=== PATIENT | male | born 1965 | race Caucasian/White ===

== ENCOUNTER 2016-10-27 08:43 | Emergency (ER) ==
[2016-10-27] MEDS ORDERED: SODIUM CHLORIDE 1,000 ML IV STA ×2 (08:46→10:16)
[2016-10-27] MEDS ORDERED: ZOFRAN 4 MG/2 ML IVP STA (08:46)
[2016-10-27 08:49] VITALS: BP 138/86; TEMP 98.2; BMI 21.4
[2016-10-27] MEDS ORDERED: ATIVAN IVP STA ×3 (08:56→09:19)
--- NOTE | 2016-10-27 09:10 | ED.PDOC ---
General ED Provider: Dr. BLAINE PAUL JR Chief Complaint: Weakness Stated Complaint: PT STATES HE HAS BEEN HAVING PROBLEMS FOR A MONTH BUT WORSE IN THE LAST WEEK. STATES HE FEELS WEAK, UNABLE TO KEEP ANYTHING DOWN. [id number] OVER LAST 24 HOURS. ALSO HAVING DIARRHEA AND FEELS LIKE HE IS GOING TO PASS OUT. PAIN TO ABDOMEN AND BACK. CANT KEEP MEDS DOWN 9[End]98.2 108 20 98% 138/86 02/28. States was on valium 10mg tid out for a week(told me it would be my last prescription) drinks 4-5 beers a day not more if I can stop unable to take morphine for back for 12 hours due to nausea Time Seen by Physician: 09:10 Mode of Arrival: Walk-In Information Source: Patient Exam Limitations: No limitations Primary Care Provider: VALDO ARCHULETA Nursing and Triage Documentation Reviewed and Agree: No Review of Systems - Review Of Systems Constitutional: Reports: Diaphoresis, Malaise, Weakness Eyes: Reports: No symptoms Ears, Nose, Mouth, Throat: Reports: No symptoms Respiratory: Reports: No symptoms Cardiac: Reports: Lightheadedness GI: Reports: Abdominal pain (LLQ), Nausea, Vomiting : Reports: No symptoms Musculoskeletal: Reports: No symptoms Skin: Reports: No symptoms Neurological: Reports: Weakness Endocrine: Reports: No symptoms Hematologic/Lymphatic: Reports: No symptoms All Other Systems: Other Past Medical History - Past Medical History Endocrine: Reports: Dyslipidemia Cardiovascular: Reports: Hypertension Respiratory: Reports: None Hematological: Reports: None Gastrointestinal: Reports: Pancreatitis Genitourinary: Reports: None Neuro/Psych: Reports: None Musculoskeletal: Reports: Back Pain Cancer: Reports: None Other Pertinent Past Medical History: BACK PAIN,RLS(RESTLESS LEG SYNDROME) - Surgical History General Surgical History: Reports: Orthopedic (KNEE sx), Back Surgery - Family History Family History: Reports: Unknown - Social History Smoking Status: Current every day smoker, Light tobacco smoker Hx Substance Use: No Alcohol Screening: Heavy Physical Exam - Physical Exam Appearance: Ill-appearing, Thin Ill-appearing: Moderate Pain Distress: Moderate Eyes: ABDI, EOMI, Conjunctiva clear ENT: Ears normal, Nose normal, Oropharynx normal Neck: Supple Respiratory: Airway patent, Breath sounds clear, Breath sounds equal, Respirations nonlabored Cardiovascular: RRR, Pulses normal, No rub, No murmur GI/: Soft, Bowel sounds normal, No Organomegaly, Tender Musculoskeletal: ROM intact, No edema, No calf tenderness Skin: Warm, Dry, Pale Neurological: Sensation intact, Motor intact, Reflexes intact, Alert, Oriented Psychiatric: Anxious Interpretation - Radiology Interpretation Radiology Interpretation By: Radiologist Radiology Results: Negative Exam Interpreted: CXR - EKG Interpretation Time of EKG #1: 08:45 Rate: Tachy Rhythm: Sinus Brinklow: Right ST Segment: Other (lae) Re-Evaluation - Re-Evaluation Time of Re-Evaluation: 10:56 (no urine yet) Status: Improved (1057 n urine disc home management on clear liquids) - Re-Evaluation Time of Re-Evaluation: 11:36 (patietn aware of need to remain hydrated wishes to try home states will avoid alcohol) Status: Improved Critical Care Note - Critical Care Note Total Time (mins): 0 Course - Course Hematology/Chemistry: 10/27/16 09:20 10/27/16 09:15 Orders, Labs, Meds: Lab Review 10/27/16 10/27/16 10/27/16 09:15 09:20 11:00 WBC 6.78 RBC 3.55 L Hgb 12.1 L Hct 34.1 L MCV 96.1 H MCH 34.1 H MCHC 35.5 H RDW Coeff of Mariaa 14.3 Plt Count 232 Immature Gran % (Auto) 0.3 Neut % (Auto) 68.4 Lymph % (Auto) 21.7 Cowley % (Auto) 8.1 Eos % (Auto) 0.3 Baso % (Auto) 1.2 Immature Gran # (Auto) 0.0 Neut # 4.6 Lymph # 1.5 Cowley # 0.6 Eos # 0.0 Baso # 0.1 Sodium 138 Potassium 4.1 Chloride 101 Carbon Dioxide 20 L Anion Gap 21.1 BUN 13 Creatinine 1.03 Estimated GFR (MDRD) 76.00 BUN/Creatinine Ratio 12.62 Glucose 99 Calcium 9.1 Total Bilirubin 0.92 AST 97 H ALT 58 Alkaline Phosphatase 73 Total Creatine Kinase 89 Troponin I 0.0100 B-Natriuretic Peptide 36 Total Protein 7.4 Albumin 4.4 Globulin 3.0 Albumin/Globulin Ratio 1.47 Amylase 67 Lipase 122 H Procalcitonin < 0.05 TSH 0.236 L Urine Color Yellow Urine Clarity Clear Urine pH 7.0 Ur Specific Monroe 1.015 Urine Protein 1+ Urine Glucose (UA) Negative Urine Ketones 1+ Urine Blood Negative Urine Nitrite Negative Urine Bilirubin Negative Urine Urobilinogen 0.2 Ur Leukocyte Esterase Negative Urine Microscopic WBC 0-2 Ur Squamous Epith Cells Not present Salicylate Level mg/dL < 5.0 Urine Opiates Screen Positive Ur Oxycodone Screen Negative Urine Methadone Screen Negative Ur Propoxyphene Screen Negative Acetaminophen < 3 L Ur Barbiturates Screen Negative U Tricyclic Antidepress Negative Ur Phencyclidine Scrn Negative Ur Amphetamine Screen Negative U Methamphetamines Scrn Negative U Benzodiazepines Scrn Positive Urine Cocaine Screen Negative U Cannabinoids Screen Positive Plasma/Serum Alcohol < 10.0 H. pylori IgG Antibody Negative Orders Category Date Time Status EKG-(ED ONLY) Stat CARDIO 10/27/16 08:47 Completed ED APPLY O2 .ONCE EMERGENCY 10/27/16 08:46 Active ED SLIP MAKER APPLIED ONCE EMERGENCY 10/27/16 08:47 Active ACETAMINOPHEN Stat LAB 10/27/16 09:15 Completed AMYLASE Stat LAB 10/27/16 09:15 Completed B-TYPE NATRIURETIC PEPTIDE Stat LAB 10/27/16 09:15 Completed BLOOD ALCOHOL Stat LAB 10/27/16 09:15 Completed BLOOD CULTURE Stat LAB 10/27/16 09:15 Received CBC W/ AUTO DIFF Stat LAB 10/27/16 09:20 Completed COMPREHENSIVE METABOLIC PANEL Stat LAB 10/27/16 09:15 Completed CREATINE KINASE Stat LAB 10/27/16 09:15 Completed DRUG SCREEN, URINE, RAPID Stat LAB 10/27/16 09:15 Completed H. PYLORI SCREEN Stat LAB 10/27/16 09:15 Completed LIPASE Stat LAB 10/27/16 09:15 Completed PROCALCITONIN Stat LAB 10/27/16 09:15 Completed SALICYLATE Stat LAB 10/27/16 09:15 Completed THYROID STIMULATING HORMONE Stat LAB 10/27/16 09:15 Completed TROPONIN I Stat LAB 10/27/16 09:15 Completed URINALYSIS C & S IF INDICATED Stat LAB 10/27/16 11:00 Completed 0.9 % Sodium Chloride [Saline Flush] MEDS 10/27/16 08:46 Active 1 syr IVF PRN PRN Diphth,Pertuss(Acell),Tet Vac [Boostrix] MEDS 10/27/16 09:42 Discontinued 0.5 ml IM .ONCE ONE Lorazepam Inj [Ativan] MEDS 10/27/16 09:19 Discontinued 2 mg IVP ONCE STA Ondansetron HCl/Pf [Zofran 4 mg/2 ml] MEDS 10/27/16 08:46 Discontinued 4 mg IVP ONCE STA Sodium Chloride 0.9% [Sodium Chloride] 1,000 ml MEDS 10/27/16 08:46 Discontinued IV BOLUS Sodium Chloride 0.9% [Sodium Chloride] 1,000 ml MEDS 10/27/16 10:16 Discontinued IV BOLUS CHEST, 1V AP ONLY Stat RADS 10/27/16 08:[address] ABDOMEN/PELVIS WO CONTRAST Stat RADS 10/27/16 08:47 Completed Medications Generic Name Dose Route Start Last Admin Trade Name Freq PRN Reason Stop Dose Admin Sodium Chloride 1 syr 10/27/16 08:46 10/27/16 09:04 Saline Flush IVF 1 syr PRN PRN Administration To flush IV Discontinued Medications Generic Name Dose Route Start Last Admin Trade Name Freq PRN Reason Stop Dose Admin Diphtheria/Pertussis/Tetanus Vacc 0.5 ml 10/27/16 09:42 10/27/16 09:52 Boostrix IM 10/27/16 09:43 0.5 ml .ONCE ONE Administration Sodium Chloride 1,000 mls @ 1,000 mls/hr 10/27/16 08:46 10/27/16 09:04 Sodium Chloride IV 10/27/16 09:45 1,000 mls/hr BOLUS STA Administration Sodium Chloride 1,000 mls @ 1,000 mls/hr 10/27/16 10:16 10/27/16 10:19 Sodium Chloride IV 10/27/16 11:15 1,000 mls/hr BOLUS STA Administration Lorazepam 2 mg 10/27/16 09:19 10/27/16 09:05 Ativan IVP 10/27/16 09:20 2 mg ONCE STA Administration Ondansetron HCl 4 mg 10/27/16 08:46 10/27/16 09:03 Zofran 4 Mg/2 Ml IVP 10/27/16 08:47 4 mg ONCE STA Administration Vital Signs: Temp Pulse Resp BP Pulse Ox 10/27/16 08:44 98.2 F 108 H 20 138/86 98 Departure - Departure Time of Disposition: 11:31 Disposition: HOME SELF-CARE Discharge Problem: Fatty liver, alcoholic Pancreatitis Qualifiers: Chronicity: chronic Pancreatitis type: alcohol induced Qualifier Code: (K86.0) Alcohol-induced chronic pancreatitis Medication adverse effect Qualifiers: Encounter type: initial encounter Qualifier Code: (T88.7XXA) Unspecified adverse effect of drug or medicament, initial encounter Instructions: Abuse of Alcohol (ED), Pancreatitis (ED), Clear Liquid Diet (ED) Condition: Good Pt referred to PMD for follow-up: Yes Additional Instructions: call PMD today for follow up return if unable to keep liquids down may use zofran or phenergan for nausea- zofran is more expensive note phenergan suppositories with bypass vomiting but are more costly return if fever over 101.0, if not voiding more than three times a day, if worsening Prescriptions: Ondansetron HCl [Zofran Tab] 4 mg PO QID PRN #12 tablet PRN Reason: Nausea / Vomiting Promethazine HCl [Phenergan Tab] 25 mg PO QID PRN #12 tablet PRN Reason: Nausea / Vomiting Promethazine HCl [Phenergan Supp] 1 - 2 supp RC QID PRN #12 supp PRN Reason: Nausea / Vomiting Allergies/Adverse Reactions: Allergies codeine Adverse Reaction (Verified 10/27/16 08:50) Vomiting Home Medications: Ambulatory Orders Methocarbamol [Robaxin] 750 mg PO TID PRN 04/11/13 Morphine Sulfate [Morphine Sulfate ER] 60 mg PO BID 04/11/13 Ropinirole HCl [Requip] 1 mg PO BEDTIME PRN 04/11/13 Lisinopril 20 mg PO DAILY 10/26/13 Omeprazole 1 cap PO QDAC 10/26/13 Atorvastatin Calcium [Lipitor] 20 mg PO DAILY 03/26/15 Metoprolol Tartrate [Lopressor] 25 mg PO BID 03/26/15 Pantoprazole Sodium [Protonix] 40 mg PO BID 30 Days 03/29/15 Ondansetron HCl [Zofran Tab] 4 mg PO QID PRN #12 tablet 10/27/16 Promethazine HCl [Phenergan Supp] 1 - 2 supp RC QID PRN #12 supp 10/27/16 Promethazine HCl [Phenergan Tab] 25 mg PO QID PRN #12 tablet 10/27/16
[2016-10-27 09:28] LABS: BASOPHILS # (AUTO) 0.1 K/uL (0-0.2); BASOPHILS % (AUTO) 1.2 % (0.0-3.0); EOSINOPHILS % (AUTO) 0.3 % (0.0-7.0); HEMATOCRIT 34.1 % (42.0-52.0); HEMOGLOBIN 12.1 g/dl (14.0-18.0); IMMATURE GRANULOCYTE % (AUTO) 0.3 % (0.0-5.0); LYMPHOCYTES # (AUTO) 1.5 K/uL (0.60-3.4); LYMPHOCYTES % (AUTO) 21.7 (10.0-50.0); MEAN CORPUSCULAR HEMOGLOBIN 34.1 pg (27.0-31.0); MEAN CORPUSCULAR HGB CONC 35.5 (31.8-35.4); MEAN CORPUSCULAR VOLUME 96.1 fl (80.0-94.0); MONOCYTES # (AUTO) 0.6 K/uL (0.4-2.0); MONOCYTES % (AUTO) 8.1 (0-10); NEUTROPHILS # (AUTO) 4.6 K/ul (2.0-6.9); NEUTROPHILS % (AUTO) 68.4; PLATELET COUNT 232 10^3/uL (140-440); RED BLOOD COUNT 3.55 10^6/ul (4.70-6.10); WHITE BLOOD COUNT 6.78 K/ul (4.2-10.2)
[2016-10-27 09:36] LABS: H. PYLORI ANTIBODY NEGATIVE (NEGATIVE); H.PYLORI INTERNAL QC INTERNAL QC VALID
--- NOTE | 2016-10-27 09:36 | DI ---
EXAM: Single frontal view of the chest HISTORY: Chest pain. COMPARISON: Chest x-ray 10/26/2013 FINDINGS: Cardiomediastinal silhouette is unremarkable. There is no pneumothorax or pleural effusio n. There is no consolidation, nodule or mass. The osseous structures are unremarkable. IMPRESSION: No acute cardiopulmonary process.
[2016-10-27] MEDS ORDERED: BOOSTRIX IM ONE (09:42)
--- NOTE | 2016-10-27 10:04 | CT ---
EXAM: CT ABDOMEN AND PELVIS HISTORY: Abdominal pain, vomiting TECHNIQUE: CT abdomen and pelvis without intravenous contrast. Images were reconstructed using 5 m m section thickness. Reformations were prepared. COMPARISON: 03/15/2016 FINDINGS: Diagnostic limitations exist without including contrast enhanced images. Moderate fatty infiltratio n of the liver with possible early cirrhotic architecture. No focal hepatic or splenic lesions. Ga llbladder is mildly distended, nonspecific. No obvious gallbladder wall thickening or pericholecyst ic stranding. No obvious gallstones within limits of CT. Pancreas and adrenal glands are within no rmal limits. Minimal nonspecific bilateral perinephric fat stranding. No nephrolithiasis, hydronep hrosis or evidence of ureteral obstruction. Mild to moderate atherosclerotic disease of the aorta. No gastric distension. What appears to represent the appendix has no evidence of inflammation. Nono bstructive bowel gas pattern. Mild distal colon diverticulosis. Urinary bladder and prostate are wit hin normal limits. There is no ascites. No abdominal wall hernia. Interbody fusion hardware lumbosacral junction. Lung bases are free of a cute infiltrate. No pneumoperitoneum. IMPRESSION: 1. Moderate fatty infiltration of the liver with probable early cirrhotic architecture. 2. Mildly distended gallbladder is nonspecific. Correlate clinically. Ultrasound is available if indicated. 3. Subtle bilateral nonspecific perinephric fat stranding likely chronic for the patient. Less lik natasha evidence of renal parenchymal or collecting system infection. 4. Mild distal colon diverticulosis. 5. Mild to moderate atherosclerotic disease.
[2016-10-27 10:06] LABS: ACETAMINOPHEN < 3 ug/ml (10-30); ALANINE AMINOTRANSFERASE 58 U/L (12-78); ALBUMIN 4.4 g/dL (3.4-5.0); ALBUMIN/GLOBULIN RATIO 1.47; ALKALINE PHOSPHATASE 73 U/L (50-136); AMYLASE 67 U/L (25-115); ANION GAP 21.1; ASPARTATE AMINO TRANSFERASE 97 U/L (15-37); BILIRUBIN,TOTAL 0.92 mg/dL (0.00-1.20); BLOOD UREA NITROGEN 13 mg/dL (7-18); BUN/CREATININE RATIO 12.62; CALCIUM 9.1 mg/dL (8.2-10.2); CARBON DIOXIDE 20 mmol/L (21-32); CHLORIDE 101 mmol/L (98-107); CREATINE KINASE 89 U/L; CREATININE 1.03 mg/dL (0.60-1.10); GLUCOSE 99 mg/dL (70-100); LIPASE 122 U/L (8-78); POTASSIUM 4.1 mmol/L (3.5-5.1); SALICYLATE < 5.0 mg/dL (2.8-20.0); SODIUM 138 mmol/L (136-145); TOTAL PROTEIN 7.4 g/dL (6.4-8.2)
[2016-10-27 11:07] LABS: BILIRUBIN,URINE Negative (NEGATIVE); KETONES,URINE 1+ (NEGATIVE); LEUKOCYTE ESTERASE ,URINE Negative (NEGATIVE); NITRITE,URINE Negative (NEGATIVE); PROTEIN,URINE 1+ (NEGATIVE); URINE, BLOOD Negative (NEGATIVE)
[2016-10-27 11:09] LABS: ADD URINE MICROSCOPIC YES
[2016-10-27 11:17] LABS: COCAIN SCREEN,URINE NEGATIVE (NEGATIVE)
== END 2016-10-27 12:01 | disposition home or self-care (01) ==
LOC: ED 08:43
DX: K86.0 Alcohol-induced chronic pancreatitis (principal); K70.0 Alcoholic fatty liver; T88.7XXA Unspecified adverse effect of drug or medicament, initial encounter; R42 Dizziness and giddiness; R53.1 Weakness; E78.5 Hyperlipidemia, unspecified; I10 Essential (primary) hypertension; F17.210 Nicotine dependence, cigarettes, uncomplicated; Z79.899 Other long term (current) drug therapy
CPT/HCPCS: 36415; 80053; 80306; 80307; 81001; 82150; 82550; 83690; 83880; 84145; 84443; 84484; 85025; 86677; 87040; 90471; 93005; 93010; 96361; 96374; 96375; 99283

== ENCOUNTER 2017-01-08 09:55 | Emergency (ER) ==
[2017-01-08 09:59] VITALS: BP 135/73; TEMP 99.6; BMI 20.5
--- NOTE | 2017-01-08 10:11 | ED.PDOC ---
General ED Provider: Dr. BLAINE PAUL JR Chief Complaint: Knee Pain/Injury Stated Complaint: step down into his garage,missed the step landed on concrete floor right knee.[End]0300, 99.6 104 22 96% 135/73 10 Time Seen by Physician: 10:10 Mode of Arrival: Wheelchair Information Source: Patient Exam Limitations: No limitations Primary Care Provider: VALDO ARCHULETA Nursing and Triage Documentation Reviewed and Agree: No Review of Systems - Review Of Systems Constitutional: Reports: No symptoms Eyes: Reports: No symptoms Ears, Nose, Mouth, Throat: Reports: No symptoms Respiratory: Reports: No symptoms Cardiac: Reports: No symptoms GI: Reports: No symptoms : Reports: No symptoms Musculoskeletal: Reports: Back pain (CHRINIC), Joint pain (RIGHT KNEE-NEW) Skin: Reports: Lesions (ABRASION BELOW KNEE) Neurological: Reports: No symptoms Endocrine: Reports: No symptoms Hematologic/Lymphatic: Reports: No symptoms All Other Systems: Other Past Medical History - Past Medical History Endocrine: Reports: Dyslipidemia Cardiovascular: Reports: Hypertension Respiratory: Reports: None Hematological: Reports: None Gastrointestinal: Reports: Pancreatitis Genitourinary: Reports: None Neuro/Psych: Reports: None Musculoskeletal: Reports: Back Pain Cancer: Reports: None Other Pertinent Past Medical History: BACK PAIN,RLS(RESTLESS LEG SYNDROME) - Surgical History General Surgical History: Reports: Orthopedic (KNEE), Back Surgery, Other (left lower wisdom tooth cut out 01/07/17) - Family History Family History: Reports: Unknown - Social History Smoking Status: Current every day smoker, Light tobacco smoker Hx Substance Use: No Alcohol Screening: Occasionally - Immunizations Tetanus Shot up to Date: Yes Physical Exam - Physical Exam Appearance: Well-appearing, Thin Pain Distress: Moderate Neck: Supple Respiratory: Airway patent Cardiovascular: RRR GI/: Soft Musculoskeletal: Normal strength, Limited ROM (RIGHT KNEE EFFUSION PAIN TENDER OVER TIBIA AND FEMUR NEAR KNEE ABRASION ANTERIOR BURNETT- SUPERFICIAL) Skin: Warm, Dry, Normal color (NOTE ABRARSION) Neurological: Sensation intact, Reflexes intact, Cranial nerves intact, Alert, Oriented Psychiatric: Affect appropriate, Mood appropriate Physician Notification - Case Discussed Physician Notified: DR BARRIGA AT [facility] COMPLETELY NONDISPLACED SH IVFX NOT A STABEL FRACTURE- Time of Notification: 11:17 (IF NONWEIGHTBEARING SPINT AND FOLLWO UP WEDNESDAY) Critical Care Note - Critical Care Note Total Time (mins): 0 Course - Course Orders, Labs, Meds: Orders Category Date Time Status CRUTCHES [ED CRUTCHES] .ONCE EMERGENCY 01/08/17 11:24 Active ED SPLINT APPLICATION .ONCE EMERGENCY 01/08/17 11:24 Active BILIRUBIN,DIRECT Stat LAB 01/08/17 11:26 Ordered CMP [COMPREHENSIVE METABOLIC PANEL] Stat LAB 01/08/17 11:26 Ordered PHOSPHORUS Stat LAB 01/08/17 11:26 Ordered Hydrocodone Bit/Acetaminophen [Hernando 10-325] MEDS 01/08/17 11:30 Discontinued 1 tab PO ONCE STA Hydrocodone Bit/Acetaminophen [Hernando 5-325] MEDS 01/08/17 10:18 Discontinued 1 tab PO ONCE STA KNEE, RIGHT 4 VIEWS Stat RADS 01/08/17 10:10 Completed Medications Discontinued Medications Generic Name Dose Route Start Last Admin Trade Name Freq PRN Reason Stop Dose Admin Acetaminophen/Hydrocodone Bitart 1 tab 01/08/17 10:18 01/08/17 10:53 Hernando 5-325 PO 01/08/17 10:19 1 tab ONCE STA Administration Acetaminophen/Hydrocodone Bitart 1 tab 01/08/17 11:30 01/08/17 11:40 Hernando 10-325 PO 01/08/17 11:31 1 tab ONCE STA Administration Vital Signs: Temp Pulse Resp BP Pulse Ox 01/08/17 09:55 99.6 F 104 H 22 135/73 96 Departure - Departure Time of Disposition: 11:17 Disposition: HOME SELF-CARE Discharge Problem: Knee fracture, right Instructions: Leg Fracture (ED) Condition: Good Pt referred to PMD for follow-up: Yes ([facility]) Additional Instructions: NO WEIGHT RIGHT LEG FOLLOW UP WEDNESDAY OUTPATIENT DR NITHYA YEUNG FOR PAIN NOT CONTROLLED BY HOME MEDS CONTACT PAIN MANAGEMENT ABOUT LEG FRACTURE AND NEW PAIN MEDICATION CONTACT PMD ABOUT ORTHOPEDIC REFERRAL- YOU WILL NEED ACTUAL REFERRAL FROM YOUR PHYSICIAN FOLLOW UP ORTHOPEDICS DR NORTH BARRIGA - [phone] [id number] [facility] Prescriptions: Hydrocodone/Acetaminophen [Hernando 10-325 Tablet] 1 each PO Q4-6H PRN #20 tablet PRN Reason: KNEE PAIN(FRACTURE) Allergies/Adverse Reactions: Allergies codeine Adverse Reaction (Verified 10/27/16 08:50) Vomiting Home Medications: Ambulatory Orders Methocarbamol [Robaxin] 750 mg PO TID PRN 04/11/13 Morphine Sulfate [Morphine Sulfate ER] 60 mg PO BID 04/11/13 Ropinirole HCl [Requip] 1 mg PO BEDTIME PRN 04/11/13 Lisinopril 20 mg PO DAILY 10/26/13 Cyclobenzaprine HCl [Flexeril] 10 mg PO DAILY 01/08/17 Hydrocodone/Acetaminophen [Hernando 10-325 Tablet] 1 each PO Q4-6H PRN #20 tablet 01/08/17 Meloxicam [Mobic] 1 tab PO DAILY 01/08/17
[2017-01-08] MEDS ORDERED: NORCO 5-325 PO STA (10:18)
--- NOTE | 2017-01-08 10:38 | DI ---
EXAM: Four views of the right knee HISTORY: Fall with trauma on floor with pain. COMPARISON: None FINDINGS: Medial and lateral compartments are unremarkable. There is a large knee effusion. There i s a fracture line through the medial aspect of the medial tibial plateau with questionable linear bernarda cency in the lateral tibial plateau. The patella is normal in position without fracture. The dista l femur is unremarkable. IMPRESSION: Large effusion with linear lucency in the medial aspect of the medial tibial plateau consistent wit h fracture. There is questionable linear lucency in the more medial aspect of the medial tibial wilmer teau. CT versus MRI is recommended to further evaluate.
[2017-01-08] MEDS ORDERED: NORCO 10-325 PO STA (11:30)
[2017-01-08 12:06] LABS: ALBUMIN/GLOBULIN RATIO 1.14; ANION GAP 20.4; BILIRUBIN,DIRECT 0.28 mg/dL (0.00-0.30); BILIRUBIN,TOTAL 0.49 mg/dL (0.00-1.20); BUN/CREATININE RATIO 13.92; CREATININE 0.79 mg/dL (0.60-1.10); PHOSPHORUS 3.1 mg/dL (2.5-4.9); POTASSIUM 4.4 mmol/L (3.5-5.1); TOTAL PROTEIN 7.5 g/dL (6.4-8.2)
== END 2017-01-08 12:56 | disposition home or self-care (01) ==
LOC: ED 09:55
DX: S82.001A Unspecified fracture of right patella, initial encounter for closed fracture (principal); W10.9XXA Fall (on) (from) unspecified stairs and steps, initial encounter; F17.210 Nicotine dependence, cigarettes, uncomplicated
CPT/HCPCS: 36415; 80053; 82248; 84100; 99283

== ENCOUNTER 2017-03-17 14:00 | Outpatient (RCR) ==
--- NOTE | 2017-03-15 09:55 | RS.OPPTEV2 ---
Date of Note: 03/12/17 Visit #: 1 Date of Evaluation: 03/12/17 Payer Source: MEDICARE Date of Onset/Injury/Change in Status: 01/19/17 (approximate date) Surgery Performed?: No Treatment Diagnosis: Closed fx of R tibial plateau History of Condition/Mechanism of Injury:: pt reports he was going down a step into his garage carrying a load of laundry and felt a sharp pain in his low back and fell with RLE under his body, causing fx. 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 pt also limited with amb as well with distance of amb, states used to amb 1-3 miles per day and now is unable to amb > than to the mailbox. Functional Limitations: Sleep, Sitting, Standing, Squatting, Ambulation, Community Access/Integration Current Subjective/complaints:: Patient states he has to get the knee better because since he has changed his gait has significantly increased low back pain. pt states he has been trying to straighten it out but unable. Treatment Side (optional): Right Medical History Medical History: Hypertension, Arthritis Medical History Comments:: pt suffered fall approx 8 weeks ago sustaining R tibial plateau fx. Surgical History: Knee Replacement, Lumbar Spine (fusion years ago) Smoking Status: Current every day smoker Hx Home Medications: meloxicam, ropinirole, tizanidine, morphine sulfate 60 mg, lisinopril 40 mg Patient's Goals: decrease pain and be able to walk Pain Assessment - Pain Description Pain Location: lumbar spine radiating into BLE (longstanding pain from back injury in 1997 is exacerbated since R tib plat fx due to altered gait) Pain Description: Burning, Sharp, Aching Current Pain Intensity: 7 Worst Pain Intensity: 10 Other Comments regarding Pain:: R knee pain 7/10 sharp pain increases with ROM extension worse than flexion. Functional Outcome Measure LE Functional Scale: 29 (63.8%) Tinetti: 16 - G Codes & Severity Modifier G Codes & Modifier: G8978 cl mobility current. G8978 cj mobility goal Source of G Code score: LE Functional scale Observation - Observation Posture: Forward Head, Rounded Shoulders, Decreased Lumbar Lordosis Handedness: Right Girth Measurement Lower: R LE above patella 39cm. patella 41 cm. below patella 34 cm Gait - Gait Pattern General Gait Pattern Observation: Antalgic Gait, Short Stance Time (R) Gait Comments: pt amb with walking stick with decreased heel strike, flexed posture, and decreased stance time on R due to pain General Muscle Strength: BUE ~4/5 difficult to MMT due to testing significantly increasing LBP - ROM Lumbar Flexion: Hand reach to patellae Sidebending to Left: Reach to Mid-thigh Sidebending to Right: Reach to Mid-thigh Lumbar Spine ROM Limitations: Soft Tissue Tightness, Muscle Weakness, Pain Comments: Muscle guarding and tightness noted to paraspinal muscles - Left Knee ROM Left Knee Extension: -8 Left Knee Flexion: 130 Knee ROM Limitations: Soft Tissue Tightness - Right Knee ROM Right Knee Extension: -23 Right Knee Flexion: 106 Knee ROM Limitations: Soft Tissue Tightness - Left Knee Strength Left Knee Extension: 3- Fair- Left Knee Flexion: 4+ Good + - Right Knee Strength Right Knee Extension: 2+ Poor+ Right Knee Flexion: 3 Fair Ankle ROM: Bilaterally WFL's - Left Ankle Strength Left Dorsiflexion: 4+ Good + Left Plantar flexion: 4+ Good + - Right Ankle Strength Right Dorsiflexion: 4 Good Right Plantarflexion: 4 Good Palpation Palpation Findings: Tenderness, Muscle Guarding Comments:: pt with muscle tightness and guarding to lumbar paraspinals R worse than L. also trigger points noted in lumbar spine. Tenderness noted to posterior knee and hamstrings Sensation - Sensation Right Upper Extremity: Intact/Normal Left Upper Extremity: Intact/Normal Right Lower Extremity: Impaired Left Lower Extremity: Impaired Sensation Description: (patient reports hyperesthesia BLE as well as areas of N/T BLE) Balance - Sitting Balance Static Sitting Balance: Normal Dynamic Sitting Balance: Normal - Standing Balance Static Standing Balance: Good (dynamic stand balance good- see tinetti score 16/ 28) Dynamic Standing Balance: (dyn stand balance good) - Treatment Modality: ice pack Treatment Area: R knee Patient Position: Supine Interventions - Exercise/Activities/Manual Therapy Exercises/Activities: QS with ankle on pillow, SAQ x 5-10 reps, pt unable to tolerate increased ex this date due to pain increased in low back Manual Therapy: none HOME EXERCISE PROGRAM: pt given written HEP with QS, SAQ, LAQ, knee squeeze pillow with quad set - Charges Total Direct Minutes: 50 mins Total Treatment Time: 60 mins Procedures billed for this date of service:: eval, ice pack Assessment Assessment: Pt presents with decreased R knee ROM, decreased strength, edema, antalgic gait with decreased heel strike, step length. Patient Education: Home Exercise Program, Home Safety, Education of Plan of Care Rehab Potential: Good Short Term Goals Goal #1: Decrease edema RLE to equal to LLE Goal to be met by: 03/26/17 Goal #2: Increase R knee flex 110, ext -15, L knee ext -5 Goal to be met by: 03/26/17 Goal #3: pt rate pain < 7/10 with treatement. Goal to be met by: 03/26/17 Exhaust And Muffler Fitter Goals Goal #1: pt independent with community mobility w/w/o AD with improved gait sequence Goal to be met by: 05/04/17 Goal #2: pt with improved R knee flex 120 ext -5, L knee ext 0 for improved gait Goal to be met by: 05/04/17 Goal #3: pt independent with HEP to continue ex to maintain funct gains after dc Goal to be met by: 05/04/17 Plan - Treatment to be Provided Procedures: Therapeutic Exercises, Therapeutic Activity, Gait Training, Patient Education Modalities: Electrical Stimulation, Cryotherapy - Treatment Plan Frequency: 2 X week Duration: 6 weeks ORDER # VISITS AND/OR THROUGH DATE: 2 w 6 through 05/04/17 - Treatment Code (1) Joint effusion Code(s): M25.40 - EFFUSION, UNSPECIFIED JOINT Comments: m25.4 (2) Knee pain Code(s): M25.569 - PAIN IN UNSPECIFIED KNEE Qualifiers: Chronicity: acute Laterality: right Qualified Code(s): M25.561 - Pain in right knee (3) Gait abnormality Code(s): R26.9 - UNSPECIFIED ABNORMALITIES OF GAIT AND MOBILITY Comments: R26.9
--- NOTE | 2017-03-17 14:32 | RS.OPPTDN ---
Subjective Date of Note: 03/17/17 Visit #: 2 Date of Evaluation: 03/12/17 Payer Source: MEDICARE Treatment Diagnosis: Closed fx of R tibial plateau Current Subjective/complaints:: Patient reports the R knee is tender to touch just above the patella today.He reports trying to exercise often at home,does isometrics frequently. Pain Assessment - Pain Description Pain Location: lumbar spine radiating into BLE (longstanding pain from back injury in 1997 is exacerbated since R tib plat fx due to altered gait) Pain Description: Burning, Sharp, Aching Current Pain Intensity: 6/10 - Heat/Cryotherapy Comments:: Ice application offered at end of session ,but patient plans to do this at home. Interventions - Exercise/Activities/Manual Therapy Exercises/Activities: 30 mins. HEP instruction and return demo ,3/15 of resisted ankle pumps,SAQ's,heelslides with blue theraband used for each exercise.90/90 hamstring stretches,then contract-relax method for the same stretch. Total minutes of Exercise: 30 Manual Therapy: none Total minutes of Manual Therapy: 0 HOME EXERCISE PROGRAM: pt given written HEP with QS, SAQ, LAQ, knee squeeze pillow with quad set - Charges Total Direct Minutes: 30 Total Treatment Time: 30 Procedures billed for this date of service:: ex 2 Assessment: Patient has increased pain with attempting terminal R knee extension today,tolerates flexion well.He is tender to palpate the distal quads today ,with moderate edema present in this area. Patient Education: Education of diagnosis, Body/Joint mechanics, Home Exercise Program, Home Safety, Activity Modification, Education of Plan of Care Patient demonstrates compliance with HEP?: Yes Short Term Goals Goal #1: Decrease edema RLE to equal to LLE Goal to be met by: 03/26/17 Goal #2: Increase R knee flex 110, ext -15, L knee ext -5 Goal to be met by: 03/26/17 Goal #3: pt rate pain < 7/10 with treatement. Goal to be met by: 03/26/17 Progress towards Goal:: Progressing [employer] Team Member Goals Goal #1: pt independent with community mobility w/w/o AD with improved gait sequence Goal to be met by: 05/04/17 Goal #2: pt with improved R knee flex 120 ext -5, L knee ext 0 for improved gait Goal to be met by: 05/04/17 Goal #3: pt independent with HEP to continue ex to maintain funct gains after dc Goal to be met by: 05/04/17 Plan PLAN OF CARE EXPIRES ON:: 05/04/17 ORDER # VISITS AND/OR THROUGH DATE: 2 w 6 through 05/04/17 PLAN: Continue Plan of Care
--- NOTE | 2017-03-19 14:06 | RS.CXNS ---
Date of scheduled appointment: 03/19/17 Type: Cancel Reason for Cancel/NS: Called and cancelled, reports levated pain from walking too much yesterday.
== END 2017-03-20 | disposition still patient (30) ==
DX: S82.141D Displaced bicondylar fracture of right tibia, subsequent encounter for closed fracture with routine healing (principal)

== ENCOUNTER 2017-11-24 13:31 | Outpatient (CLI) | payer OTHER ==
--- NOTE | 2017-11-24 15:51 | DI ---
EXAM: Chest two views HISTORY: Cough COMPARISON: 10/27/2016 TECHNIQUE: Two views of the chest were performed FINDINGS: The lungs are clear. Lungs are hyperinflated. There is no pleural effusion or pneumothora x. The heart is normal in size. The mediastinal contour is normal. There are no acute abnormalitie s of the bones. IMPRESSION: 1. No acute cardiopulmonary process. 2. Hyperinflated lungs may suggest chronic obstructive pulmonary disease.
== END 2017-11-24 13:32 | disposition home or self-care (01) ==
LOC: RAD 13:31
PROVIDERS: ATTEND Physician Assistant
DX: R00.0 Tachycardia, unspecified (principal); R05 Cough
CPT/HCPCS: 93005; 93010

== ENCOUNTER 2017-12-03 12:25 | Outpatient (CLI) ==
[2017-12-03] MEDS ORDERED: ALBUTEROL 0.083% NEB NEB STA (13:22)
== END 2017-12-03 12:26 | disposition home or self-care (01) ==
LOC: CAR 12:25
PROVIDERS: ATTEND Physician Assistant
DX: R06.09 Other forms of dyspnea (principal)

== ENCOUNTER 2018-09-13 11:09 | Outpatient (CLI) | END 2018-09-13 11:10 | disposition home or self-care (01) | LOC: WOUND 11:09 | PROVIDERS: ATTEND Nurse Practitioner Family | DX: T25.221A Burn of second degree of right foot, initial encounter (principal); T31.0 Burns involving less than 10% of body surface; I10 Essential (primary) hypertension ==

== ENCOUNTER 2021-07-08 17:49 | Inpatient (IN) ==
[2021-07-08] MEDS ORDERED: SODIUM CHLORIDE 1,000 ML IV STA ×2 (18:35→18:50)
--- NOTE | 2021-07-08 18:35 | ED.PDOC ---
General <SRINIVASA AGUILLON DO - Last Filed: 07/09/21 11:03> ED Provider: Dr. SRINIVASA AGUILLON Chief Complaint: Abdominal Pain Stated Complaint: Nausea, Vomiting and abdominal pain Onset last evening Hx pancreatitis Time Seen by Provider: 07/08/21 18:10 Mode of Arrival: Walk-In Information Source: Patient Exam Limitations: No limitations Primary Care Provider: THIEN CORDOVA Nursing and Triage Documentation Reviewed and Agree: Yes Does patient meet sepsis criteria?: No System Inflammatory Response Syndrome: Pulse >90 BPM Sepsis Protocol: For patient's 13 years and over: Temp is 96.8 and below OR 101 and greater Pulse >90 BPM Resp >20/minute Acutely Altered Mental Status Are patient's symptoms suggestive of a new infection, such as: -Pneumonia -Skin, Soft Tissue -Endocarditis -UTI -Bone, Joint Infection -Implantable Device -Acute Abdominal Infection -Wound Infection -Meningitis -Blood Stream Catheter Infection -Unknown GI Complaint Exam <SRINIVASA AGUILLON DO - Last Filed: 07/09/21 11:03> Abdominal Pain Complaint/Exam Onset: Gradual Duration: 24 hr Symptoms Are: Still present Timing: Intermittent Initial Severity: Moderate Current Severity: Moderate Location of Pain: Diffuse Radiates To: Reports Back Character: Reports Sharp, Cramping, Tearing and Colicky Aggravating: Reports Movement and Position Alleviating: Reports None Associated Signs and Symptoms: Reports Back pain and Decreased appetite; Denies Diaphoresis, Fever, Cough, Chest pain, Dizziness, Constipation, Blood in stool, Dysuria, Urinary frequency, Decreased urine output, Discharge, Nausea, Vomiting, Diarrhea or Decreased activity Related History: Reports Similar episode AAA Risk Factors: Reports None Cardiac Risk Factors: Reports None Testicular Torsion Risk Factors: Reports None Surgical Obstruction Risk Factors: Reports Bilious emesis and Colicky abdominal pain Abdominal Findings: Present Abdominal distention, Rebound tenderness and CVA Tenderness Male Body Picture: 1. Differential Diagnoses: Bowel Obstruction, Diverticulitis, Pancreatitis and GB Review of Systems <DO Jorge JOLLEY Last Filed: 07/09/21 11:03> Review Of Systems Constitutional: Reports Malaise and Weakness Eyes: Reports No symptoms Ears, Nose, Mouth, Throat: Reports No symptoms Respiratory: Reports No symptoms Cardiac: Reports No symptoms GI: Reports Abdomen distended, Abdominal pain, Nausea, Poor fluid intake, Vomiting and Other (hx diverticulitis) : Reports No symptoms Musculoskeletal: Reports No symptoms Skin: Reports No symptoms Neurological: Reports No symptoms Endocrine: Reports No symptoms Hematologic/Lymphatic: Reports No symptoms All Other Systems: Reviewed and Negative PFSH <SRINIVASA AGUILLON DO - Last Filed: 07/09/21 11:03> Medical History (Updated 07/08/21 @ 22:51 by FRANCISCO GALLEGOS RN) COPD (chronic obstructive pulmonary disease) Hypertension Social History Smoking and tobacco status: Current every day smoker History of recent travel: No Physical Exam <SRINIVASA AGUILLON DO - Last Filed: 07/09/21 11:03> Physical Exam Appearance: Reports Ill-appearing and Thin Ill-appearing: Moderate Pain Distress: Mild Eyes: Reports ABDI, EOMI, Conjunctiva clear and Conjunctiva pale ENT: Reports Ears normal, Nose normal and Oropharynx normal Neck: Supple Respiratory: Reports Airway patent, Breath sounds clear, Breath sounds equal and Respirations nonlabored Cardiovascular: Reports RRR, Pulses normal, No rub and No murmur GI/: Reports Soft, No masses, Tender and Bowel sounds hypoactive Musculoskeletal: Reports Normal strength, ROM intact and No edema Skin: Reports Warm, Dry, Normal color and Pale Neurological: Reports Sensation intact, Motor intact, Reflexes intact, Cranial nerves intact, Alert, Oriented, Disoriented and Alert to verbal Psychiatric: Reports Affect appropriate, Mood appropriate, Anxious, Depressed and Other Interpretation <DO Jorge JOLLEY Last Filed: 07/09/21 11:03> Radiology Interpretation Exam Interpreted: Portable CXR (No acute cardiopulmonary process.) and CT Scan (Acute pancreatitis. 2. Possible cholelithiasis. 3. Hepatic steatosis ) Physician Notification <SRINIVASA AGUILLON DO - Last Filed: 07/09/21 11:03> Case Discussed Physician Notified: Dr Al Time of Notification: 19:00 Comments: accepts patient <KEITH AL MD - Last Filed: 07/08/21 20:40> Critical Care Note Total Critical Care Time (mins): 40 Course <SRINIVASA AGUILLON DO - Last Filed: 07/09/21 11:03> Course Hematology/Chemistry: 07/09/21 04:10 07/09/21 04:10 Orders, Labs, Meds: Lab Review 07/08/21 07/08/21 07/08/21 18:50 18:50 18:50 WBC 9.65 RBC 3.23 L Hgb 10.8 L Hct 30.3 L MCV 93.8 MCH 33.4 H MCHC 35.6 H RDW Coeff of Mariaa 13.2 Plt Count 208 Neutrophils % (Manual) 84.0 H Lymphocytes % (Manual) 3.0 L Monocytes % (Manual) 10.0 Reactive Lymphocytes 3.0 Anisocytosis Not present PT INR APTT Sodium 133.5 L Potassium 3.81 Chloride 100.9 Carbon Dioxide 20.4 L Anion Gap 16.01 BUN 11.2 Creatinine 0.80 Estimated GFR (MDRD) 100.00 BUN/Creatinine Ratio 14.00 Glucose 108.4 H Lactic Acid Calcium 9.84 Magnesium 1.28 L Total Bilirubin 0.64 AST 110.0 H ALT 71.4 H Alkaline Phosphatase 82.3 Total Creatine Kinase 58.9 Total Protein 7.43 Albumin 4.77 Globulin 2.66 Albumin/Globulin Ratio 1.79 Amylase 595.5 H* Lipase 7635.8 H Procalcitonin D-Dimer 6018.43 H Urine Color Urine Clarity Urine pH Ur Specific [place] Urine Protein Urine Glucose (UA) Urine Ketones Urine Blood Urine Nitrite Urine Bilirubin Urine Urobilinogen Ur Leukocyte Esterase Influ A Molecular Assay Influ B Molecular Assay SARS-CoV-2 Ag (Rapid) 07/08/21 07/08/21 07/08/21 18:50 18:50 18:50 WBC RBC Hgb Hct MCV MCH MCHC RDW Coeff of Mariaa Plt Count Neutrophils % (Manual) Lymphocytes % (Manual) Monocytes % (Manual) Reactive Lymphocytes Anisocytosis PT 10.1 INR 0.97 APTT 24.1 Sodium Potassium Chloride Carbon Dioxide Anion Gap BUN Creatinine Estimated GFR (MDRD) BUN/Creatinine Ratio Glucose Lactic Acid 2.47 H Calcium Magnesium Total Bilirubin AST ALT Alkaline Phosphatase Total Creatine Kinase Total Protein Albumin Globulin Albumin/Globulin Ratio Amylase Lipase Procalcitonin 0.07 H D-Dimer Urine Color Urine Clarity Urine pH Ur Specific [place] Urine Protein Urine Glucose (UA) Urine Ketones Urine Blood Urine Nitrite Urine Bilirubin Urine Urobilinogen Ur Leukocyte Esterase Influ A Molecular Assay Influ B Molecular Assay SARS-CoV-2 Ag (Rapid) 07/08/21 07/08/21 07/08/21 18:50 20:40 21:00 WBC RBC Hgb Hct MCV MCH MCHC RDW Coeff of Mariaa Plt Count Neutrophils % (Manual) Lymphocytes % (Manual) Monocytes % (Manual) Reactive Lymphocytes Anisocytosis PT INR APTT Sodium Potassium Chloride Carbon Dioxide Anion Gap BUN Creatinine Estimated GFR (MDRD) BUN/Creatinine Ratio Glucose Lactic Acid Calcium Magnesium Total Bilirubin AST ALT Alkaline Phosphatase Total Creatine Kinase Total Protein Albumin Globulin Albumin/Globulin Ratio Amylase Lipase Procalcitonin D-Dimer Urine Color Yellow Urine Clarity Clear Urine pH 5.0 Ur Specific [place] 1.010 Urine Protein Negative Urine Glucose (UA) Negative Urine Ketones Negative Urine Blood Negative Urine Nitrite Negative Urine Bilirubin Negative Urine Urobilinogen 0.2 Ur Leukocyte Esterase Negative Influ A Molecular Assay Negative by naat Influ B Molecular Assay Negative by naat SARS-CoV-2 Ag (Rapid) Negative Orders Category Date Time Status ADMIT PATIENT INPATIENT .TO [facility] (MONITORED BED) ADMISSION 07/08/21 21:12 Active EKG-(ED ONLY) Stat CARDIO 07/08/21 18:37 Completed ACTIVITY .Up ad Ellen CARE 07/08/21 21:14 Active INTAKE & OUTPUT Q8HR CARE 07/08/21 21:13 Active NPO REMINDER: IMAGING ONCE CARE 07/08/21 18:37 Completed TELEMETRY MONITORING TELE CARE 07/08/21 21:13 Active VITAL SIGNS Q4HR CARE 07/08/21 21:14 Active NOTHING BY MOUTH DIETARY 07/08/21 Breakfast Ordered ED IV/MEDIPORT/POWERPORT .ONCE EMERGENCY 07/08/21 18:37 Completed IV [ED IV/MEDIPORT/POWERPORT] .ONCE EMERGENCY 07/08/21 18:36 Active ABG COOX Stat LAB 07/08/21 18:38 Ordered AMYLASE DAILY@0600 LAB 07/09/21 04:10 Completed AMYLASE DAILY@0600 LAB 07/10/21 06:00 Ordered AMYLASE Stat LAB 07/08/21 18:50 Completed BLOOD CULTURE (ED ONLY) Stat LAB 07/08/21 18:50 Received CBC W/ AUTO DIFF DAILY@0600 LAB 07/09/21 04:10 Completed CBC W/ AUTO DIFF DAILY@0600 LAB 07/10/21 06:00 Ordered CBC W/ AUTO DIFF Stat LAB 07/08/21 18:50 Completed CMP [COMPREHENSIVE METABOLIC PANEL] Stat LAB 07/08/21 18:50 Completed COMPREHENSIVE METABOLIC PANEL DAILY@0600 LAB 07/09/21 04:10 Completed COMPREHENSIVE METABOLIC PANEL DAILY@0600 LAB 07/10/21 06:00 Ordered COVID-19 ANTIGEN TEST Stat LAB 07/08/21 20:40 Completed CPK [CREATINE KINASE] Stat LAB 07/08/21 18:50 Completed D-DIMER Stat LAB 07/08/21 18:50 Completed FLU A & B MOLECULAR [FLU A/B MOLECULAR] Stat LAB 07/08/21 18:50 Completed LACTIC ACID Stat LAB 07/08/21 18:50 Completed LIPASE DAILY@0600 LAB 07/09/21 04:10 Completed LIPASE DAILY@0600 LAB 07/10/21 06:00 Ordered LIPASE Stat LAB 07/08/21 18:50 Completed MAGNESIUM DAILY@0600 LAB 07/09/21 04:10 Completed MAGNESIUM DAILY@0600 LAB 07/10/21 06:00 Ordered MAGNESIUM Stat LAB 07/08/21 18:50 Completed MANUAL DIFFERENTIAL Stat LAB 07/08/21 18:50 Completed PARTIAL THROMBOPLASTIN TIME Stat LAB 07/08/21 18:50 Completed PROCALCITONIN Stat LAB 07/08/21 18:50 Completed PT WITH INR Stat LAB 07/08/21 18:50 Completed UA [URINALYSIS C & S IF INDICATED] Stat LAB 07/08/21 21:00 Completed 0.9 % Sodium Chloride [Saline Flush] MEDS 07/08/21 18:36 Active 1 syr IVF PRN PRN Chlordiazepoxide HCl [Librium] MEDS 07/08/21 21:45 Active 5 mg PO QID PRN Enoxaparin Sodium [Lovenox] MEDS 07/09/21 09:00 Active 40 mg SUBCUT DAILY Famotidine Inj [Pepcid] MEDS 07/08/21 18:41 Discontinued 20 mg IVP ONCE ONE Hydromorphone HCl [Dilaudid 1 mg/ml Syringe] MEDS 07/08/21 21:12 Discontinued 1 mg IVP Q4HR PRN Lisinopril [Zestril] MEDS 07/09/21 09:00 Discontinued 20 mg PO DAILY Magnesium Sulfate Vial [Magnesium Sulfate 1 gm/2 ml MEDS 07/08/21 20:35 Discontinued Vial] 2 gm IVP ONCE ONE Methocarbamol [Robaxin] MEDS 07/08/21 21:20 Active 750 mg PO TID PRN Morphine Sulfate [Morphine 4 mg/ml Syringe] MEDS 07/08/21 19:51 Discontinued 4 mg IVP ONCE ONE Morphine Sulfate [Morphine 4 mg/ml Syringe] MEDS 07/08/21 19:12 Discontinued 4 mg IVP ONCE STA Ondansetron HCl/Pf [Zofran 4 mg/2 ml] MEDS 07/08/21 18:36 Discontinued 4 mg IVP ONCE STA Ondansetron HCl/Pf [Zofran 4 mg/2 ml] MEDS 07/08/21 21:12 Active 4 mg IVP Q6H PRN Pantoprazole Sodium [Protonix IV] MEDS 07/09/21 09:00 Active 40 mg IVP DAILY Ropinirole HCl [Requip] MEDS 07/09/21 21:00 Active 1 mg PO BEDTIME Sodium Chloride 0.9% [Sodium Chloride] 1,000 ml MEDS 07/08/21 21:30 Active IV 150 mls/hr Sodium Chloride 0.9% [Sodium Chloride] 1,000 ml MEDS 07/08/21 18:35 Discontinued IV BOLUS Vitamin B-1 Inj [Thiamine] 100 mg MEDS 07/09/21 09:00 Active 0.9 % Sodium Chloride [Sodium Chloride] 50 ml IV DAILY RESUSCITATION STATUS Routine OTHERS 07/08/21 21:12 Ordered CHEST, 1V AP ONLY Stat RADS 07/08/21 18:[address] ABDOMEN/PELVIS W/WO CONTRAS Stat RADS 07/08/21 18:37 Completed Medications Generic Name Dose Route Start Last Admin Trade Name Freq PRN Reason Stop Dose Admin Chlordiazepoxide HCl 5 mg 07/08/21 21:45 07/09/21 08:00 Chlordiazepoxide Hcl 5 Mg Capsule PO 5 mg QID PRN Administration Alcohol Withdrawal Cyclobenzaprine HCl 10 mg 07/09/21 09:00 07/09/21 08:20 Cyclobenzaprine Hcl 10 Mg Tablet PO 10 mg DAILY ANATOLY Administration Enoxaparin Sodium 40 mg 07/09/21 09:00 07/09/21 08:14 Enoxaparin Sodium 40 Mg/0.4 Ml Syr SUBCUT 40 mg DAILY ANATOLY Administration Hydromorphone HCl 1 mg 07/08/21 23:16 07/09/21 07:23 Hydromorphone Hcl 1 Mg/Ml Syringe IVP 1 mg Q3HR PRN Administration Severe Pain Sodium Chloride 1,000 mls @ 150 mls/hr 07/08/21 21:30 07/09/21 05:25 Sodium Chloride IV 150 mls/hr .Q6H40M ANATOLY Administration Thiamine HCl 100 mg/ Sodium 51 mls @ 100 mls/hr 07/09/21 09:00 07/09/21 08:14 Chloride IV 100 mls/hr DAILY ANATOLY Administration Promethazine HCl 25 mg/ Sodium 51 mls @ 75 mls/hr 07/09/21 07:37 07/09/21 08:00 Chloride IV 75 mls/hr Q6H PRN Administration Nausea/Vomitting Lisinopril 40 mg 07/09/21 09:00 07/09/21 08:20 Lisinopril 10 Mg Tablet PO 40 mg DAILY ANATOLY Administration Methocarbamol 750 mg 07/08/21 21:20 Methocarbamol 500 Mg Tablet PO TID PRN Spasms Morphine Sulfate 60 mg 07/09/21 09:00 07/09/21 08:20 Morphine Sulfate 15 Mg Tablet.Er PO 60 mg BID ANATOLY Administration Ondansetron HCl 4 mg 07/08/21 21:12 07/09/21 05:31 Ondansetron Hcl/Pf 4 Mg/2 Ml Sdv IVP 4 mg Q6H PRN Administration Nausea / Vomiting Pantoprazole Sodium 40 mg 07/09/21 09:00 07/09/21 08:19 Pantoprazole Sodium 40 Mg Vial IVP 40 mg DAILY ANATOLY Administration Ropinirole HCl 1 mg 07/09/21 21:00 Ropinirole Hcl 1 Mg Tablet PO BEDTIME ANATOLY Sodium Chloride 1 syr 07/08/21 18:36 0.9% Sodium Chloride 10 Ml Disp.Syrin IVF PRN PRN To flush IV Discontinued Medications Generic Name Dose Route Start Last Admin Trade Name Freq PRN Reason Stop Dose Admin Enalaprilat 1.25 mg 07/08/21 23:14 07/08/21 23:54 Enalaprilat Dihydrate 1.25 Mg/Ml Vial IVP 07/08/21 23:15 1.25 mg ONCE ONE Administration Famotidine 20 mg 07/08/21 18:41 07/08/21 18:55 Famotidine Inj 20 Mg/2 Ml Vial IVP 07/08/21 18:42 20 mg ONCE ONE Administration Hydromorphone HCl 1 mg 07/08/21 21:12 07/08/21 22:29 Hydromorphone Hcl 1 Mg/Ml Syringe IVP 1 mg Q4HR PRN Administration Severe Pain Sodium Chloride 1,000 mls @ 1,000 mls/hr 07/08/21 18:35 07/08/21 18:55 Sodium Chloride IV 07/08/21 19:34 1,000 mls/hr BOLUS STA Administration Sodium Chloride 1,000 mls @ 1,000 mls/hr 07/09/21 04:30 07/09/21 06:42 Sodium Chloride IV Not Given Q0H ANATOLY Lisinopril 20 mg 07/09/21 09:00 Lisinopril 10 Mg Tablet PO DAILY ANATOLY Magnesium Sulfate 2 gm 07/08/21 20:35 07/08/21 20:55 Magnesium Sulfate Vial 1 Gm/2 Ml Vial IVP 07/08/21 20:36 2 gm ONCE ONE Administration Morphine Sulfate 4 mg 07/08/21 19:12 07/08/21 19:21 Morphine Sulfate 4 Mg/Ml Syringe IVP 07/08/21 19:13 4 mg ONCE STA Administration Morphine Sulfate 4 mg 07/08/21 19:51 07/08/21 20:04 Morphine Sulfate 4 Mg/Ml Syringe IVP 07/08/21 19:52 4 mg ONCE ONE Administration Ondansetron HCl 4 mg 07/08/21 18:36 07/08/21 18:55 Ondansetron Hcl/Pf 4 Mg/2 Ml Sdv IVP 07/08/21 18:37 4 mg ONCE STA Administration Vital Signs: Temp Pulse Resp BP Pulse Ox 07/08/21 18:18 97.7 F 112 H 18 147/85 H 96 <KEITH AL MD - Last Filed: 07/08/21 20:40> Course Orders, Labs, Meds: Lab Review 07/08/21 07/08/21 07/08/21 18:50 18:50 18:50 WBC 9.65 RBC 3.23 L Hgb 10.8 L Hct 30.3 L MCV 93.8 MCH 33.4 H MCHC 35.6 H RDW Coeff of Mariaa 13.2 Plt Count 208 Neutrophils % (Manual) 84.0 H Lymphocytes % (Manual) 3.0 L Monocytes % (Manual) 10.0 Reactive Lymphocytes 3.0 Anisocytosis Not present PT INR APTT Sodium 133.5 L Potassium 3.81 Chloride 100.9 Carbon Dioxide 20.4 L Anion Gap 16.01 BUN 11.2 Creatinine 0.80 Estimated GFR (MDRD) 100.00 BUN/Creatinine Ratio 14.00 Glucose 108.4 H Lactic Acid Calcium 9.84 Magnesium 1.28 L Total Bilirubin 0.64 AST 110.0 H ALT 71.4 H Alkaline Phosphatase 82.3 Total Creatine Kinase 58.9 Total Protein 7.43 Albumin 4.77 Globulin 2.66 Albumin/Globulin Ratio 1.79 Amylase 595.5 H* Lipase 7635.8 H Procalcitonin D-Dimer 6018.43 H Urine Color Urine Clarity Urine pH Ur Specific [place] Urine Protein Urine Glucose (UA) Urine Ketones Urine Blood Urine Nitrite Urine Bilirubin Urine Urobilinogen Ur Leukocyte Esterase Influ A Molecular Assay Influ B Molecular Assay SARS-CoV-2 Ag (Rapid) 07/08/21 07/08/21 07/08/21 18:50 18:50 18:50 WBC RBC Hgb Hct MCV MCH MCHC RDW Coeff of Mariaa Plt Count Neutrophils % (Manual) Lymphocytes % (Manual) Monocytes % (Manual) Reactive Lymphocytes Anisocytosis PT 10.1 INR 0.97 APTT 24.1 Sodium Potassium Chloride Carbon Dioxide Anion Gap BUN Creatinine Estimated GFR (MDRD) BUN/Creatinine Ratio Glucose Lactic Acid 2.47 H Calcium Magnesium Total Bilirubin AST ALT Alkaline Phosphatase Total Creatine Kinase Total Protein Albumin Globulin Albumin/Globulin Ratio Amylase Lipase Procalcitonin 0.07 H D-Dimer Urine Color Urine Clarity Urine pH Ur Specific [place] Urine Protein Urine Glucose (UA) Urine Ketones Urine Blood Urine Nitrite Urine Bilirubin Urine Urobilinogen Ur Leukocyte Esterase Influ A Molecular Assay Influ B Molecular Assay SARS-CoV-2 Ag (Rapid) 07/08/21 07/08/21 07/08/21 18:50 20:40 21:00 WBC RBC Hgb Hct MCV MCH MCHC RDW Coeff of Mariaa Plt Count Neutrophils % (Manual) Lymphocytes % (Manual) Monocytes % (Manual) Reactive Lymphocytes Anisocytosis PT INR APTT Sodium Potassium Chloride Carbon Dioxide Anion Gap BUN Creatinine Estimated GFR (MDRD) BUN/Creatinine Ratio Glucose Lactic Acid Calcium Magnesium Total Bilirubin AST ALT Alkaline Phosphatase Total Creatine Kinase Total Protein Albumin Globulin Albumin/Globulin Ratio Amylase Lipase Procalcitonin D-Dimer Urine Color Yellow Urine Clarity Clear Urine pH 5.0 Ur Specific [place] 1.010 Urine Protein Negative Urine Glucose (UA) Negative Urine Ketones Negative Urine Blood Negative Urine Nitrite Negative Urine Bilirubin Negative Urine Urobilinogen 0.2 Ur Leukocyte Esterase Negative Influ A Molecular Assay Negative by naat Influ B Molecular Assay Negative by naat SARS-CoV-2 Ag (Rapid) Negative Orders Category Date Time Status ADMIT PATIENT INPATIENT .TO [facility] (MONITORED BED) ADMISSION 07/08/21 21:12 Active EKG-(ED ONLY) Stat CARDIO 07/08/21 18:37 Completed ACTIVITY .Up ad Ellen CARE 07/08/21 21:14 Active INTAKE & OUTPUT Q8HR CARE 07/08/21 21:13 Active NPO REMINDER: IMAGING ONCE CARE 07/08/21 18:37 Completed TELEMETRY MONITORING TELE CARE 07/08/21 21:13 Active VITAL SIGNS Q4HR CARE 07/08/21 21:14 Active NOTHING BY MOUTH DIETARY 07/08/21 Breakfast Ordered ED IV/MEDIPORT/POWERPORT .ONCE EMERGENCY 07/08/21 18:37 Completed IV [ED IV/MEDIPORT/POWERPORT] .ONCE EMERGENCY 07/08/21 18:36 Active ABG COOX Stat LAB 07/08/21 18:38 Ordered AMYLASE DAILY@0600 LAB 07/09/21 04:10 Completed AMYLASE DAILY@0600 LAB 07/10/21 06:00 Ordered AMYLASE Stat LAB 07/08/21 18:50 Completed BLOOD CULTURE (ED ONLY) Stat LAB 07/08/21 18:50 Received CBC W/ AUTO DIFF DAILY@0600 LAB 07/09/21 04:10 Completed CBC W/ AUTO DIFF DAILY@0600 LAB 07/10/21 06:00 Ordered CBC W/ AUTO DIFF Stat LAB 07/08/21 18:50 Completed CMP [COMPREHENSIVE METABOLIC PANEL] Stat LAB 07/08/21 18:50 Completed COMPREHENSIVE METABOLIC PANEL DAILY@0600 LAB 07/09/21 04:10 Completed COMPREHENSIVE METABOLIC PANEL DAILY@0600 LAB 07/10/21 06:00 Ordered COVID-19 ANTIGEN TEST Stat LAB 07/08/21 20:40 Completed CPK [CREATINE KINASE] Stat LAB 07/08/21 18:50 Completed D-DIMER Stat LAB 07/08/21 18:50 Completed FLU A & B MOLECULAR [FLU A/B MOLECULAR] Stat LAB 07/08/21 18:50 Completed LACTIC ACID Stat LAB 07/08/21 18:50 Completed LIPASE DAILY@0600 LAB 07/09/21 04:10 Completed LIPASE DAILY@0600 LAB 07/10/21 06:00 Ordered LIPASE Stat LAB 07/08/21 18:50 Completed MAGNESIUM DAILY@0600 LAB 07/09/21 04:10 Completed MAGNESIUM DAILY@0600 LAB 07/10/21 06:00 Ordered MAGNESIUM Stat LAB 07/08/21 18:50 Completed MANUAL DIFFERENTIAL Stat LAB 07/08/21 18:50 Completed PARTIAL THROMBOPLASTIN TIME Stat LAB 07/08/21 18:50 Completed PROCALCITONIN Stat LAB 07/08/21 18:50 Completed PT WITH INR Stat LAB 07/08/21 18:50 Completed UA [URINALYSIS C & S IF INDICATED] Stat LAB 07/08/21 21:00 Completed 0.9 % Sodium Chloride [Saline Flush] MEDS 07/08/21 18:36 Active 1 syr IVF PRN PRN Chlordiazepoxide HCl [Librium] MEDS 07/08/21 21:45 Active 5 mg PO QID PRN Enoxaparin Sodium [Lovenox] MEDS 07/09/21 09:00 Active 40 mg SUBCUT DAILY Famotidine Inj [Pepcid] MEDS 07/08/21 18:41 Discontinued 20 mg IVP ONCE ONE Hydromorphone HCl [Dilaudid 1 mg/ml Syringe] MEDS 07/08/21 21:12 Discontinued 1 mg IVP Q4HR PRN Lisinopril [Zestril] MEDS 07/09/21 09:00 Discontinued 20 mg PO DAILY Magnesium Sulfate Vial [Magnesium Sulfate 1 gm/2 ml MEDS 07/08/21 20:35 Discontinued Vial] 2 gm IVP ONCE ONE Methocarbamol [Robaxin] MEDS 07/08/21 21:20 Active 750 mg PO TID PRN Morphine Sulfate [Morphine 4 mg/ml Syringe] MEDS 07/08/21 19:51 Discontinued 4 mg IVP ONCE ONE Morphine Sulfate [Morphine 4 mg/ml Syringe] MEDS 07/08/21 19:12 Discontinued 4 mg IVP ONCE STA Ondansetron HCl/Pf [Zofran 4 mg/2 ml] MEDS 07/08/21 18:36 Discontinued 4 mg IVP ONCE STA Ondansetron HCl/Pf [Zofran 4 mg/2 ml] MEDS 07/08/21 21:12 Active 4 mg IVP Q6H PRN Pantoprazole Sodium [Protonix IV] MEDS 07/09/21 09:00 Active 40 mg IVP DAILY Ropinirole HCl [Requip] MEDS 07/09/21 21:00 Active 1 mg PO BEDTIME Sodium Chloride 0.9% [Sodium Chloride] 1,000 ml MEDS 07/08/21 21:30 Active IV 150 mls/hr Sodium Chloride 0.9% [Sodium Chloride] 1,000 ml MEDS 07/08/21 18:35 Discontinued IV BOLUS Vitamin B-1 Inj [Thiamine] 100 mg MEDS 07/09/21 09:00 Active 0.9 % Sodium Chloride [Sodium Chloride] 50 ml IV DAILY RESUSCITATION STATUS Routine OTHERS 07/08/21 21:12 Ordered CHEST, 1V AP ONLY Stat RADS 07/08/21 18:[address] ABDOMEN/PELVIS W/WO CONTRAS Stat RADS 07/08/21 18:37 Completed Medications Generic Name Dose Route Start Last Admin Trade Name Freq PRN Reason Stop Dose Admin Chlordiazepoxide HCl 5 mg 07/08/21 21:45 07/09/21 08:00 Chlordiazepoxide Hcl 5 Mg Capsule PO 5 mg QID PRN Administration Alcohol Withdrawal Cyclobenzaprine HCl 10 mg 07/09/21 09:00 07/09/21 08:20 Cyclobenzaprine Hcl 10 Mg Tablet PO 10 mg DAILY ANATOLY Administration Enoxaparin Sodium 40 mg 07/09/21 09:00 07/09/21 08:14 Enoxaparin Sodium 40 Mg/0.4 Ml Syr SUBCUT 40 mg DAILY ANATOLY Administration Hydromorphone HCl 1 mg 07/08/21 23:16 07/09/21 07:23 Hydromorphone Hcl 1 Mg/Ml Syringe IVP 1 mg Q3HR PRN Administration Severe Pain Sodium Chloride 1,000 mls @ 150 mls/hr 07/08/21 21:30 07/09/21 05:25 Sodium Chloride IV 150 mls/hr .Q6H40M ANATOLY Administration Thiamine HCl 100 mg/ Sodium 51 mls @ 100 mls/hr 07/09/21 09:00 07/09/21 08:14 Chloride IV 100 mls/hr DAILY ANATOLY Administration Promethazine HCl 25 mg/ Sodium 51 mls @ 75 mls/hr 07/09/21 07:37 07/09/21 08:00 Chloride IV 75 mls/hr Q6H PRN Administration Nausea/Vomitting Lisinopril 40 mg 07/09/21 09:00 07/09/21 08:20 Lisinopril 10 Mg Tablet PO 40 mg DAILY ANATOLY Administration Methocarbamol 750 mg 07/08/21 21:20 Methocarbamol 500 Mg Tablet PO TID PRN Spasms Morphine Sulfate 60 mg 07/09/21 09:00 07/09/21 08:20 Morphine Sulfate 15 Mg Tablet.Er PO 60 mg BID ANATOLY Administration Ondansetron HCl 4 mg 07/08/21 21:12 07/09/21 05:31 Ondansetron Hcl/Pf 4 Mg/2 Ml Sdv IVP 4 mg Q6H PRN Administration Nausea / Vomiting Pantoprazole Sodium 40 mg 07/09/21 09:00 07/09/21 08:19 Pantoprazole Sodium 40 Mg Vial IVP 40 mg DAILY ANATOLY Administration Ropinirole HCl 1 mg 07/09/21 21:00 Ropinirole Hcl 1 Mg Tablet PO BEDTIME ANATOLY Sodium Chloride 1 syr 07/08/21 18:36 0.9% Sodium Chloride 10 Ml Disp.Syrin IVF PRN PRN To flush IV Discontinued Medications Generic Name Dose Route Start Last Admin Trade Name Freq PRN Reason Stop Dose Admin Enalaprilat 1.25 mg 07/08/21 23:14 07/08/21 23:54 Enalaprilat Dihydrate 1.25 Mg/Ml Vial IVP 07/08/21 23:15 1.25 mg ONCE ONE Administration Famotidine 20 mg 07/08/21 18:41 07/08/21 18:55 Famotidine Inj 20 Mg/2 Ml Vial IVP 07/08/21 18:42 20 mg ONCE ONE Administration Hydromorphone HCl 1 mg 07/08/21 21:12 07/08/21 22:29 Hydromorphone Hcl 1 Mg/Ml Syringe IVP 1 mg Q4HR PRN Administration Severe Pain Sodium Chloride 1,000 mls @ 1,000 mls/hr 07/08/21 18:35 07/08/21 18:55 Sodium Chloride IV 07/08/21 19:34 1,000 mls/hr BOLUS STA Administration Sodium Chloride 1,000 mls @ 1,000 mls/hr 07/09/21 04:30 07/09/21 06:42 Sodium Chloride IV Not Given Q0H ANATOLY Lisinopril 20 mg 07/09/21 09:00 Lisinopril 10 Mg Tablet PO DAILY ANATOLY Magnesium Sulfate 2 gm 07/08/21 20:35 07/08/21 20:55 Magnesium Sulfate Vial 1 Gm/2 Ml Vial IVP 07/08/21 20:36 2 gm ONCE ONE Administration Morphine Sulfate 4 mg 07/08/21 19:12 07/08/21 19:21 Morphine Sulfate 4 Mg/Ml Syringe IVP 07/08/21 19:13 4 mg ONCE STA Administration Morphine Sulfate 4 mg 07/08/21 19:51 07/08/21 20:04 Morphine Sulfate 4 Mg/Ml Syringe IVP 07/08/21 19:52 4 mg ONCE ONE Administration Ondansetron HCl 4 mg 07/08/21 18:36 07/08/21 18:55 Ondansetron Hcl/Pf 4 Mg/2 Ml Sdv IVP 07/08/21 18:37 4 mg ONCE STA Administration Vital Signs: Temp Pulse Resp BP Pulse Ox 07/08/21 18:18 97.7 F 112 H 18 147/85 H 96 Discharge Plan Discharge Patient Disposition: ADMITTED INPATIENT Discharge Problem: Acute pancreatitis, Hypomagnesemia, Abdominal pain ED Provider: SRINIVASA AGUILLON Condition: Fair <SRINIVASA AGUILLON DO - Last Filed: 07/09/21 11:03> Physician Progress Note: Normally goes to pain mgt for bsck, receives morphine but has been out for several days[]
[2021-07-08] MEDS ORDERED: ZOFRAN 4 MG/2 ML IVP STA ×2 (18:36→18:50)
[2021-07-08] MEDS ORDERED: PEPCID IVP ONE (18:41)
[2021-07-08 18:57] LABS: HEMATOCRIT 30.3 % (42.0-52.0); HEMOGLOBIN 10.8 g/dl (14.0-18.0); MEAN CORPUSCULAR HEMOGLOBIN 33.4 pg (27.0-31.0); MEAN CORPUSCULAR HGB CONC 35.6 (31.8-35.4); MEAN CORPUSCULAR VOLUME 93.8 fl (80.0-94.0); PLATELET COUNT 208 10^3/uL (140-440); RDW COEFFICIENT OF VARIATION 13.2 % (11.6-14.8); RED BLOOD COUNT 3.23 10^6/ul (4.70-6.10); WHITE BLOOD COUNT 9.65 K/ul (4.2-10.2)
[2021-07-08 19:00] LABS: ANISOCYTOSIS NOT PRESENT (NOT PRESENT)
[2021-07-08 19:12] LABS: ALANINE AMINOTRANSFERASE 71.4 U/L (0-50); ALBUMIN 4.77 g/dL (3.5-5.0); ALKALINE PHOSPHATASE 82.3 U/L (38-126); BILIRUBIN,TOTAL 0.64 mg/dL (0.2-1.3); BLOOD UREA NITROGEN 11.2 mg/dL (9-20); CALCIUM 9.84 mg/dL (8.4-10.2); CARBON DIOXIDE 20.4 mmol/L (22-30.0); CHLORIDE 100.9 mmol/L (98-107); CREATINE KINASE 58.9 U/L (55-170); CREATININE 0.8 mg/dL (0.60-1.10); GLUCOSE 108.4 mg/dL (74-106); MAGNESIUM 1.28 mg/dL (1.6-2.3); POTASSIUM 3.81 mmol/L (3.5-5.1); SODIUM 133.5 mmol/L (134.5-145); TOTAL PROTEIN 7.43 g/dL (6.3-8.2)
[2021-07-08] MEDS ORDERED: MORPHINE 4 MG/ML SYRINGE IVP STA (19:12)
[2021-07-08 19:20] LABS: AMYLASE 595.5 U/L (30-110)
[2021-07-08 19:22] LABS: MOLECULAR FLU A NEGATIVE BY NAAT (NEGATIVE); MOLECULAR FLU B NEGATIVE BY NAAT (NEGATIVE); PARTIAL THROMBOPLASTIN TIME 24.1 SEC (23.9-40.0); PROTHROMBIN TIME 10.1 SEC (9.3-11.0)
[2021-07-08 19:27] LABS: LIPASE 7635.8 U/L (23-300)
[2021-07-08] MEDS ORDERED: MORPHINE 4 MG/ML SYRINGE IVP ONE (19:51)
--- NOTE | 2021-07-08 20:03 | CT ---
EXAM: CT of the abdomen pelvis with and without contrast History: Abdominal pain and distension. Comparison: CT abdomen pelvis 10/27/2016 Technique: Multiplanar CT images through the abdomen pelvis were obtained with and without the admin istration of IV contrast. FINDINGS: Lung bases are clear. No acute osseous abnormalities. Postsurgical changes of the lumbosa cral spine. No renal stones and no hydronephrosis. No ureteral calculi. Atherosclerotic vascular calcifications . Possible cholelithiasis and/or gallbladder sludge. The liver is fatty. No liver or splenic lesio ns. Peripancreatic inflammation. No peripancreatic fluid collections. There is thickening of the a nterior pararenal fascia on the left. Adrenal glands are unremarkable. No renal masses. No dilated loops of bowel. The appendix is normal. Bladder is mild to moderately distended but there is no bl adder wall thickening. Prostate is not enlarged. No perirectal inflammation and no lymphadenopathy. Impression: 1. Acute pancreatitis. 2. Possible cholelithiasis. 3. Hepatic steatosis All CT scans are performed using dose optimization techniques as appropriate to the performed exam an d include at least one of the following: Automated exposure control, adjustment of the mA and/or kV according t o size, and the use of iterative reconstruction technique.
--- NOTE | 2021-07-08 20:03 | DI ---
EXAM: Chest one-view. HISTORY: Nausea vomiting. COMPARISON: 11/24/2017 chest x-ray. FINDINGS: The lungs are clear. The cardiac silhouette is normal in size. There is no pulmonary ed yogi present. There is no pleural effusion identified. There is no acute osseous abnormality. IMPRESSION: No acute cardiopulmonary process.
[2021-07-08] MEDS ORDERED: MAGNESIUM SULFATE 1 GM/2 ML VIAL IVP ONE (20:35)
[2021-07-08 21:09] LABS: BILIRUBIN,URINE Negative (NEGATIVE); CLARITY,URINE Clear (CLEAR); COLOR,URINE Yellow (YELLOW); GLUCOSE, URINE (UA) Negative (NEGATIVE); KETONES,URINE Negative (NEGATIVE); LEUKOCYTE ESTERASE ,URINE Negative (NEGATIVE); NITRITE,URINE Negative (NEGATIVE); PROTEIN,URINE Negative (NEGATIVE); URINE, BLOOD Negative (NEGATIVE); UROBILINOGEN,URINE 0.2 (0.2)
[2021-07-08] MEDS ORDERED: DILAUDID 1 MG/ML SYRINGE IVP PRN (21:12)
[2021-07-08] MEDS ORDERED: ROBAXIN PO PRN (21:20)
[2021-07-08] MEDS: SODIUM CHLORIDE 1,000 ML IV SCH (22:16)
[2021-07-08 22:49] VITALS: BMI 19.4
[2021-07-08] MEDS ORDERED: VASOTEC IV IVP ONE (23:14)
[2021-07-09] MEDS: DILAUDID 1 MG/ML SYRINGE IVP PRN ×5 (01:04→14:59)
[2021-07-09] MEDS: SODIUM CHLORIDE 1,000 ML IV SCH ×5 (04:10→19:11)
[2021-07-09 04:34] LABS: BASOPHILS % (AUTO) 0.2 % (0.0-3.0); HEMATOCRIT 32.4 % (42.0-52.0); HEMOGLOBIN 11.7 g/dl (14.0-18.0); IMMATURE GRANULOCYTE # (AUTO) 0.2 (0.0-1.0); IMMATURE GRANULOCYTE % (AUTO) 0.7 % (0.0-5.0); LYMPHOCYTES # (AUTO) 0.6 K/uL (0.60-3.4); LYMPHOCYTES % (AUTO) 2.9 (10.0-50.0); MEAN CORPUSCULAR HEMOGLOBIN 33.7 pg (27.0-31.0); MEAN CORPUSCULAR HGB CONC 36.1 (31.8-35.4); MEAN CORPUSCULAR VOLUME 93.4 fl (80.0-94.0); MONOCYTES # (AUTO) 1.4 K/uL (0.4-2.0); MONOCYTES % (AUTO) 6.5 (0-10); NEUTROPHILS # (AUTO) 19.6 K/ul (2.0-6.9); NEUTROPHILS % (AUTO) 89.7 % (42.2-75.2); PLATELET COUNT 205 10^3/uL (140-440); RDW COEFFICIENT OF VARIATION 13.4 % (11.6-14.8); RED BLOOD COUNT 3.47 10^6/ul (4.70-6.10); WHITE BLOOD COUNT 21.87 K/ul (4.2-10.2)
[2021-07-09 04:51] LABS: ALANINE AMINOTRANSFERASE 59.1 U/L (0-50); ALBUMIN 4.32 g/dL (3.5-5.0); ALKALINE PHOSPHATASE 77.2 U/L (38-126); ASPARTATE AMINO TRANSFERASE 73.6 U/L (17-59); BILIRUBIN,TOTAL 0.95 mg/dL (0.2-1.3); BLOOD UREA NITROGEN 9.3 mg/dL (9-20); CALCIUM 9.04 mg/dL (8.4-10.2); CARBON DIOXIDE 25.3 mmol/L (22-30.0); CHLORIDE 99.6 mmol/L (98-107); CREATININE 0.72 mg/dL (0.60-1.10); MAGNESIUM 1.65 mg/dL (1.6-2.3); POTASSIUM 4.17 mmol/L (3.5-5.1); SODIUM 131.2 mmol/L (134.5-145); TOTAL PROTEIN 6.96 g/dL (6.3-8.2)
[2021-07-09 05:19] LABS: AMYLASE 594.5 U/L (30-110); LIPASE 4542.2 U/L (23-300)
[2021-07-09] MEDS: ZOFRAN 4 MG/2 ML IVP PRN ×2 (05:31→11:37)
[2021-07-09] MEDS ORDERED: PHENERGAN 25 MG/ML VIAL ONE ×2 (07:48→14:53)
[2021-07-09] MEDS ORDERED: THIAMINE ONE (07:50)
[2021-07-09] MEDS: PHENERGAN 25 MG/ML VIAL 25 MG in SODIUM CHLORIDE 50 ML IV PRN ×2 (08:00→15:07)
[2021-07-09] MEDS: LIBRIUM PO PRN ×2 (08:00→15:18)
[2021-07-09] MEDS: LOVENOX SUBCUT SCH (08:14)
--- NOTE | 2021-07-09 08:18 | PCM.PROG ---
Date Seen by Provider: 07/09/21 Time Seen by Provider: 07:35 Subjective: Pt presented for acute pancreatitis and is still have epigastric pain and nausea. No F.C.CP.SOB. Minimal change from admission last night. Objective: Vitals: T=98.8 F, P=115, R=18, PS=895/91, SPO2=94 HEENT: PERRL Neck: supple Lungs: clear CVS: RRR Abdomen: Epigastric TTP Neurological: no acute findings Lab/Tests/Diagnostic Imaging: Elevated lipase (1) Acute pancreatitis: Status: Acute Code(s): K85.90 - Acute pancreatitis without necrosis or infection, unspecified SNOMED Code(s): 947945337 Plan: 1. Acute Pancreatitis: Continue Dilaudid and Zofran. I have added Phenergan for breakthru nausea. I will change his diet to NPO except meds and he can start taking his home meds. 2. HTN: On lisinopril but incorrect home dosage. Will adjust to correct home dosing.
[2021-07-09] MEDS: PROTONIX IV IVP SCH (08:19)
[2021-07-09] MEDS: MS CONTIN PO SCH ×2 (08:20→21:08)
[2021-07-09] MEDS: FLEXERIL PO SCH (08:20)
[2021-07-09] MEDS: ZESTRIL PO SCH (08:20)
[2021-07-09] MEDS: THIAMINE 100 MG in SODIUM CHLORIDE 50 ML IV SCH (08:46)
[2021-07-09] MEDS ORDERED: ZESTRIL PO SCH (09:00)
[2021-07-09] MEDS ORDERED: NARCAN IVP PRN (16:44)
[2021-07-09] MEDS: DILAUDID 0.5 MG/0.5 ML SYRINGE IVP PRN ×2 (18:11→22:02)
[2021-07-09] MEDS: REQUIP PO SCH (21:08)
[2021-07-10] MEDS: DILAUDID 0.5 MG/0.5 ML SYRINGE IVP PRN ×7 (01:26→21:25)
[2021-07-10] MEDS: SODIUM CHLORIDE 1,000 ML IV SCH ×3 (01:36→17:44)
[2021-07-10 06:17] LABS: BASOPHILS % (AUTO) 0.2 % (0.0-3.0); HEMATOCRIT 30.8 % (42.0-52.0); HEMOGLOBIN 10.6 g/dl (14.0-18.0); IMMATURE GRANULOCYTE # (AUTO) 0.3 (0.0-1.0); IMMATURE GRANULOCYTE % (AUTO) 1.3 % (0.0-5.0); LYMPHOCYTES # (AUTO) 1.2 K/uL (0.60-3.4); LYMPHOCYTES % (AUTO) 5.4 (10.0-50.0); MEAN CORPUSCULAR HEMOGLOBIN 33.1 pg (27.0-31.0); MEAN CORPUSCULAR HGB CONC 34.4 (31.8-35.4); MEAN CORPUSCULAR VOLUME 96.3 fl (80.0-94.0); MONOCYTES # (AUTO) 1.4 K/uL (0.4-2.0); MONOCYTES % (AUTO) 6.3 (0-10); NEUTROPHILS % (AUTO) 86.8 % (42.2-75.2); PLATELET COUNT 175 10^3/uL (140-440); RDW COEFFICIENT OF VARIATION 13.9 % (11.6-14.8); WHITE BLOOD COUNT 21.84 K/ul (4.2-10.2)
[2021-07-10 06:31] LABS: ALANINE AMINOTRANSFERASE 34.6 U/L (0-50); ALBUMIN 3.58 g/dL (3.5-5.0); ALKALINE PHOSPHATASE 67.4 U/L (38-126); AMYLASE 266.9 U/L (30-110); ASPARTATE AMINO TRANSFERASE 36.2 U/L (17-59); BILIRUBIN,TOTAL 0.72 mg/dL (0.2-1.3); BLOOD UREA NITROGEN 12.1 mg/dL (9-20); CALCIUM 8.74 mg/dL (8.4-10.2); CARBON DIOXIDE 28.1 mmol/L (22-30.0); CHLORIDE 100.8 mmol/L (98-107); CREATININE 0.93 mg/dL (0.60-1.10); GLUCOSE 88.5 mg/dL (74-106); LIPASE 921.7 U/L (23-300); MAGNESIUM 1.69 mg/dL (1.6-2.3); POTASSIUM 3.78 mmol/L (3.5-5.1); SODIUM 133.7 mmol/L (134.5-145); TOTAL PROTEIN 6.24 g/dL (6.3-8.2)
[2021-07-10] MEDS: FLEXERIL PO SCH (08:22)
[2021-07-10] MEDS: ZESTRIL PO SCH (08:22)
[2021-07-10] MEDS: MS CONTIN PO SCH ×2 (08:22→20:11)
[2021-07-10] MEDS: LOVENOX SUBCUT SCH (08:23)
[2021-07-10] MEDS ORDERED: THIAMINE ONE (09:13)
[2021-07-10] MEDS: THIAMINE 100 MG in SODIUM CHLORIDE 50 ML IV SCH (09:22)
[2021-07-10] MEDS: PROTONIX IV IVP SCH (09:23)
[2021-07-10] MEDS: LIBRIUM PO PRN (18:12)
[2021-07-10] MEDS: REQUIP PO SCH (20:11)
--- NOTE | 2021-07-10 20:16 | PCM.PROG ---
Date Seen by Provider: 07/10/21 Time Seen by Provider: 11:30 Subjective: Abdominal pain/pancreatitis Objective: Vitals: T=99.2 F, P=96, R=18, PK=667/79, SPO2=93 HEENT: Sclera anti icteric Neck: supple Lungs: CTA CVS: HR RRR Abdomen: soft , tender w/o rebound/BS active Extremities: neg Neurological: Normal Skin: turgor adeq Lab/Tests/Diagnostic Imaging: Hida scan pending (1) Acute pancreatitis: Status: Acute Code(s): K85.90 - Acute pancreatitis without necrosis or infection, unspecified SNOMED Code(s): 099277326 Plan: Schedule for HIDA Scan tomorrow/Contacted [facility]
[2021-07-10] MEDS ORDERED: PHENERGAN 25 MG/ML VIAL ONE (20:19)
[2021-07-10] MEDS: PHENERGAN 25 MG/ML VIAL 25 MG in SODIUM CHLORIDE 50 ML IV PRN (20:23)
[2021-07-10] MEDS ORDERED: CATAPRES PO ONE (21:12)
[2021-07-10] MEDS ORDERED: CATAPRES PO SCH (21:36)
[2021-07-11] MEDS: SODIUM CHLORIDE 1,000 ML IV SCH ×4 (00:49→23:36)
[2021-07-11] MEDS: DILAUDID 0.5 MG/0.5 ML SYRINGE IVP PRN ×4 (01:22→19:40)
[2021-07-11] MEDS: MYLICON PO PRN (02:19)
[2021-07-11 05:15] LABS: BASOPHILS % (AUTO) 0.2 % (0.0-3.0); EOSINOPHILS % (AUTO) 0.1 % (0.0-7.0); HEMATOCRIT 28.2 % (42.0-52.0); HEMOGLOBIN 9.7 g/dl (14.0-18.0); IMMATURE GRANULOCYTE # (AUTO) 0.2 (0.0-1.0); IMMATURE GRANULOCYTE % (AUTO) 0.9 % (0.0-5.0); LYMPHOCYTES % (AUTO) 5.6 (10.0-50.0); MEAN CORPUSCULAR HEMOGLOBIN 33.7 pg (27.0-31.0); MEAN CORPUSCULAR HGB CONC 34.4 (31.8-35.4); MEAN CORPUSCULAR VOLUME 97.9 fl (80.0-94.0); MONOCYTES # (AUTO) 1.4 K/uL (0.4-2.0); MONOCYTES % (AUTO) 7.7 (0-10); NEUTROPHILS # (AUTO) 15.6 K/ul (2.0-6.9); NEUTROPHILS % (AUTO) 85.5 % (42.2-75.2); PLATELET COUNT 146 10^3/uL (140-440); RED BLOOD COUNT 2.88 10^6/ul (4.70-6.10); WHITE BLOOD COUNT 18.26 K/ul (4.2-10.2)
[2021-07-11 05:27] LABS: ALANINE AMINOTRANSFERASE 28.2 U/L (0-50); ALBUMIN 3.81 g/dL (3.5-5.0); ALKALINE PHOSPHATASE 69.6 U/L (38-126); ASPARTATE AMINO TRANSFERASE 41.3 U/L (17-59); BILIRUBIN,TOTAL 0.79 mg/dL (0.2-1.3); BLOOD UREA NITROGEN 14.2 mg/dL (9-20); CALCIUM 8.85 mg/dL (8.4-10.2); CARBON DIOXIDE 23.7 mmol/L (22-30.0); CREATININE 0.92 mg/dL (0.60-1.10); GLUCOSE 73.1 mg/dL (74-106); POTASSIUM 3.55 mmol/L (3.5-5.1); SODIUM 133.9 mmol/L (134.5-145); TOTAL PROTEIN 6.57 g/dL (6.3-8.2)
--- NOTE | 2021-07-11 08:03 | PCM.PROG ---
Date Seen by Provider: 07/11/21 Time Seen by Provider: 07:40 Subjective: Pt still with epigastric pain but sxs are slowly improving. Now states he feels like he has a gas bubble in his abdomen. Labs are improving. No fevers. Objective: Vitals: T=99.1 F, P=106, R=16, BU=588/94, SPO2=94 HEENT: PERRL Neck: supple Lungs: clear CVS: RRR Abdomen: Still with epigastric TTP Lab/Tests/Diagnostic Imaging: WBC is 18.26 down from 21.84. Amylase to 107. Lipase was 466 yesterday. (1) Acute pancreatitis: Status: Acute Code(s): K85.90 - Acute pancreatitis without necrosis or infection, unspecified SNOMED Code(s): 439998877 Plan: 1. Acute Pancreatitis: Pt is getting a HIDA scan today. Labs are improving. Will add a lipase to todays labs. Extending time between doses of Dilaudid and will plan on advancing diet after HIDA scan assuming no acute concerning findings.
[2021-07-11] MEDS ORDERED: CATAPRES PO PRN (09:00)
[2021-07-11] MEDS: THIAMINE 100 MG in SODIUM CHLORIDE 50 ML IV SCH (09:41)
[2021-07-11] MEDS: FLEXERIL PO SCH (09:41)
[2021-07-11] MEDS: ZESTRIL PO SCH (09:41)
[2021-07-11] MEDS: MS CONTIN PO SCH ×2 (09:42→20:18)
[2021-07-11] MEDS: LOVENOX SUBCUT SCH (09:43)
[2021-07-11] MEDS: PROTONIX IV IVP SCH (09:57)
--- NOTE | 2021-07-11 10:38 | NM ---
EXAM: Hepatobiliary scan HISTORY: Right upper quadrant pain. COMPARISON: None of this type. CT 07/08/2021. PROCEDURE: The patient was injected with 4 mCi of 99mTc mebrofenin intravenously. Images of the abdo men were obtained at 5 min intervals for 30 minutes. An additional image was obtained at 45 minutes . The patient was then injected with 2 mcg of CCK by slow infusion while images of the gallbladder we re obtained to assess gallbladder contraction. FINDINGS: Sequential images demonstrate normal uptake of tracer into the liver. Activity is seen in the intrahepatic biliary ducts at about 10 minutes. The activity appears in the gallbladder at about 15 minutes. Subsequent images demonstrate increasing activity in the gallbladder. Activity first a ppears in the small bowel following CCK. The gallbladder ejection fraction is 80%. IMPRESSION: 1. Normal appearance of tracer in the gallbladder and normal transit of tracer into the common bile duct, duodenum and small bowel. 2. The gallbladder ejection fraction is 80% (normal).
[2021-07-11] MEDS: NICODERM 21 MG TD SCH (11:23)
[2021-07-11] MEDS: REQUIP PO SCH (20:18)
[2021-07-12] MEDS: DILAUDID 0.5 MG/0.5 ML SYRINGE IVP PRN ×6 (00:12→23:39)
[2021-07-12] MEDS ORDERED: PHENERGAN 25 MG/ML VIAL ONE ×2 (04:04→18:15)
[2021-07-12] MEDS: PHENERGAN 25 MG/ML VIAL 25 MG in SODIUM CHLORIDE 50 ML IV PRN ×2 (04:08→18:18)
[2021-07-12] MEDS: SODIUM CHLORIDE 1,000 ML IV SCH ×2 (06:59→17:21)
[2021-07-12] MEDS: ZESTRIL PO SCH (08:42)
[2021-07-12] MEDS: PROTONIX IV IVP SCH (08:42)
[2021-07-12] MEDS: MS CONTIN PO SCH ×2 (08:43→20:14)
[2021-07-12] MEDS: NICODERM 21 MG TD SCH (08:43)
[2021-07-12] MEDS: LOVENOX SUBCUT SCH (08:43)
[2021-07-12] MEDS: FLEXERIL PO SCH (08:44)
[2021-07-12] MEDS ORDERED: THIAMINE ONE (08:52)
[2021-07-12] MEDS: THIAMINE 100 MG in SODIUM CHLORIDE 50 ML IV SCH (08:55)
[2021-07-12] MEDS ORDERED: SODIUM CHLORIDE 500 ML IV STA (11:19)
[2021-07-12] MEDS ORDERED: ROCEPHIN 1 GM VIAL 1 GM in SODIUM CHLORIDE 100ML 100 ML IV STA (11:19)
[2021-07-12] MEDS ORDERED: TYLENOL PO ONE (11:19)
--- NOTE | 2021-07-12 11:26 | PCM.PROG ---
Date Seen by Provider: 07/12/21 Subjective: NV and fever today, tolerating clear liquids, lipase trending down at 303, pt still requiring narcotic pain control Objective: Vitals: T=98.2 F, P=103, R=18, BQ=818/97, SPO2=98 HEENT: [conjunctiva clear] Neck: []supple Lungs: []no respiratory distress CVS: []regular rate Abdomen: []nondistended Extremities: [] Neurological: []alert with fluent speech Skin: []no cyanosis Lab/Tests/Diagnostic Imaging: [] (1) Acute pancreatitis: Status: Acute Code(s): K85.90 - Acute pancreatitis without necrosis or infection, unspecified SNOMED Code(s): 808785538 Plan: will start fever work up IV NS, tylenol, Rocephin care to Dr Mesa at 19:00
[2021-07-12 11:38] LABS: BASOPHILS % (AUTO) 0.2 % (0.0-3.0); EOSINOPHILS % (AUTO) 0.1 % (0.0-7.0); HEMATOCRIT 29.2 % (42.0-52.0); HEMOGLOBIN 10.1 g/dl (14.0-18.0); IMMATURE GRANULOCYTE # (AUTO) 0.1 (0.0-1.0); IMMATURE GRANULOCYTE % (AUTO) 0.4 % (0.0-5.0); LYMPHOCYTES # (AUTO) 1.8 K/uL (0.60-3.4); LYMPHOCYTES % (AUTO) 10.8 (10.0-50.0); MEAN CORPUSCULAR HEMOGLOBIN 33.1 pg (27.0-31.0); MEAN CORPUSCULAR HGB CONC 34.6 (31.8-35.4); MEAN CORPUSCULAR VOLUME 95.7 fl (80.0-94.0); NEUTROPHILS # (AUTO) 12.5 K/ul (2.0-6.9); NEUTROPHILS % (AUTO) 76.2 % (42.2-75.2); PLATELET COUNT 199 10^3/uL (140-440); RDW COEFFICIENT OF VARIATION 13.3 % (11.6-14.8); RED BLOOD COUNT 3.05 10^6/ul (4.70-6.10); WHITE BLOOD COUNT 16.32 K/ul (4.2-10.2)
[2021-07-12 11:49] LABS: ALANINE AMINOTRANSFERASE 29.5 U/L (0-50); ALBUMIN 4.21 g/dL (3.5-5.0); ALKALINE PHOSPHATASE 92.7 U/L (38-126); ASPARTATE AMINO TRANSFERASE 51.3 U/L (17-59); BILIRUBIN,TOTAL 1.13 mg/dL (0.2-1.3); CALCIUM 8.93 mg/dL (8.4-10.2); CARBON DIOXIDE 26.5 mmol/L (22-30.0); CHLORIDE 96.9 mmol/L (98-107); CREATININE 0.72 mg/dL (0.60-1.10); SODIUM 131.6 mmol/L (134.5-145); TOTAL PROTEIN 7.31 g/dL (6.3-8.2)
[2021-07-12 11:55] LABS: POTASSIUM 2.83 mmol/L (3.5-5.1)
--- NOTE | 2021-07-12 11:58 | DI ---
EXAM: CHEST RADIOGRAPH (1 VIEW) TECHNIQUE: Frontal Chest Radiograph. HISTORY: Fever. COMPARISON: Chest radiograph 07/08/2021 FINDINGS: Lines, Tubes, Devices: None Lungs and Pleura: No focal consolidation. No pleural effusion. No pneumothorax. No pulmonary edema . Cardiomediastinum: Normal cardiomediastinal silhouette. No aortic calcifications. Bones/Soft Tissues: No acute osseous abnormality. No soft tissue abnormality. Upper Abdomen: Within normal limits. IMPRESSION: No acute radiographic abnormality.
[2021-07-12] MEDS ORDERED: K-DUR PO SCH (12:00)
--- NOTE | 2021-07-12 12:07 | CT ---
EXAM: CT abdomen pelvis without contrast HISTORY: Fever COMPARISON: 07/08/2021 TECHNIQUE: CT abdomen pelvis performed without intravenous contrast. Coronal and sagittal reformatt ed images obtained. FINDINGS: Trace left pleural effusion. No free air. No acute abnormalities of the bones. Degenera tive change in the spine. Posterior spinal fusion hardware. Heart normal in size. Evaluation organ parenchyma limited without contrast. Liver probably mildly decreased in attenuation. No gallstones identified. Moderate peripancreatic inflammation and edema. Spleen unremarkable. Adrenals unremar kaBle. Nonspecific bilateral perinephric stranding. No hydronephrosis or nephrolithiasis. No calcu li visualized in normal course of the ureters. Circumferential bladder wall thickening. Prostate no rmal in size. Aorta normal in caliber. Moderate atherosclerosis. Stomach unremarkable. No dilated loops small bowel. Appendix appears normal. Nonspecific bowel gas pattern with scattered air in th e small and large bowel. No lymphadenopathy. Trace pelvic free fluid. Body wall edema. Small foci of air anterior subcutaneous tissues, likely related to injection of medicine. IMPRESSION: 1. Redemonstration of acute pancreatitis. Moderate peripancreatic inflammation/edema, mildly increa se from prior examination. 2. Probable hepatic steatosis. 3. Nonspecific bowel gas pattern with scattered air in the small and large bowel. 4. Nonspecific bilateral perinephric stranding. 5. Circumferential bladder wall thickening may relate to changes of chronic outlet obstruction or cy stitis . 6. Trace pelvic free fluid. 7. Trace left pleural effusion. 8. Body wall edema. 9. Atherosclerosis All CT scans are performed using dose optimization techniques as appropriate to the performed exam an d include at least one of the following: Automated exposure control, adjustment of the mA and/or kV according t o size, and the use of iterative reconstruction technique.
[2021-07-12 12:14] LABS: MONOCYTES % (AUTO) 12.3 (0-10)
[2021-07-12 15:19] LABS: BILIRUBIN,URINE Negative (NEGATIVE); CLARITY,URINE Clear (CLEAR); COLOR,URINE Yellow (YELLOW); GLUCOSE, URINE (UA) Negative (NEGATIVE); KETONES,URINE Negative (NEGATIVE); LEUKOCYTE ESTERASE ,URINE Negative (NEGATIVE); NITRITE,URINE Negative (NEGATIVE); PH,URINE 6.5 (5-9); PROTEIN,URINE Negative (NEGATIVE); URINE, BLOOD 1+ (NEGATIVE); UROBILINOGEN,URINE 0.2 (0.2)
[2021-07-12 15:31] LABS: SQUAMOUS EPITHELIAL CELL,UR NOT PRESENT (0-5)
[2021-07-12] MEDS: REQUIP PO SCH (20:15)
[2021-07-13] MEDS: SODIUM CHLORIDE 1,000 ML IV SCH ×4 (00:04→22:15)
[2021-07-13] MEDS: LIBRIUM PO PRN (03:12)
[2021-07-13] MEDS: DILAUDID 0.5 MG/0.5 ML SYRINGE IVP PRN ×4 (03:15→20:23)
[2021-07-13 05:55] LABS: BASOPHILS % (AUTO) 0.3 % (0.0-3.0); EOSINOPHILS # (AUTO) 0.1 K/ul (0.0-0.7); EOSINOPHILS % (AUTO) 0.6 % (0.0-7.0); HEMATOCRIT 25.8 % (42.0-52.0); HEMOGLOBIN 9.1 g/dl (14.0-18.0); IMMATURE GRANULOCYTE % (AUTO) 0.4 % (0.0-5.0); LYMPHOCYTES % (AUTO) 9.3 (10.0-50.0); MEAN CORPUSCULAR HEMOGLOBIN 33.5 pg (27.0-31.0); MEAN CORPUSCULAR HGB CONC 35.3 (31.8-35.4); MEAN CORPUSCULAR VOLUME 94.9 fl (80.0-94.0); MONOCYTES # (AUTO) 1.9 K/uL (0.4-2.0); MONOCYTES % (AUTO) 17.8 (0-10); NEUTROPHILS # (AUTO) 7.6 K/ul (2.0-6.9); NEUTROPHILS % (AUTO) 71.6 % (42.2-75.2); PLATELET COUNT 209 10^3/uL (140-440); RDW COEFFICIENT OF VARIATION 13.3 % (11.6-14.8); RED BLOOD COUNT 2.72 10^6/ul (4.70-6.10); WHITE BLOOD COUNT 10.57 K/ul (4.2-10.2)
[2021-07-13 06:01] LABS: AMYLASE 59.1 U/L (30-110); BLOOD UREA NITROGEN 4.7 mg/dL (9-20); CALCIUM 8.55 mg/dL (8.4-10.2); CARBON DIOXIDE 28.7 mmol/L (22-30.0); CREATININE 0.7 mg/dL (0.60-1.10); GLUCOSE 183.9 mg/dL (74-106); LIPASE 435.1 U/L (23-300); SODIUM 131.6 mmol/L (134.5-145)
[2021-07-13 06:02] LABS: POTASSIUM 2.32 mmol/L (3.5-5.1)
[2021-07-13] MEDS ORDERED: MAGNESIUM SULFATE 1 GM/100 ML D5W 1 GM/100 ML BAG IV STA (08:04)
--- NOTE | 2021-07-13 08:08 | PCM.PROG ---
Date Seen by Provider: 07/13/21 Subjective: pt improved, decrease nausea and pain, decreased wbc and temperature, will attempt to advance diet Objective: Vitals: T=99.3 F, P=113, R=16, GU=479/91, PSE2=193 HEENT: []eomi Neck: []supple Lungs: [] no respiratory distress CVS: []RRR Abdomen: []nondistended Extremities: []bharti Neurological: []awake and alert Skin: []no cyanosis Lab/Tests/Diagnostic Imaging: []per Rad ct abd +pancreatitis, perinephric stranding, no obstruction, cxr nap, covid neg, ua +blood (1) Acute pancreatitis: Status: Acute Code(s): K85.90 - Acute pancreatitis without necrosis or infection, unspecified SNOMED Code(s): 256840276 Plan: tid 20meq potassium, one time mgso4 iv, continue daily rocephin, advance diet care to Dr Sevilla at 19:00
[2021-07-13] MEDS: MS CONTIN PO SCH ×2 (09:00→20:15)
[2021-07-13] MEDS ORDERED: ROCEPHIN 1 GM VIAL 1 GM in SODIUM CHLORIDE 100ML 100 ML IV SCH (09:00)
[2021-07-13] MEDS: PROTONIX IV IVP SCH (09:42)
[2021-07-13] MEDS: K-DUR PO SCH ×3 (09:46→17:21)
[2021-07-13] MEDS: ZESTRIL PO SCH (09:47)
[2021-07-13] MEDS: FLEXERIL PO SCH (09:47)
[2021-07-13] MEDS: NICODERM 21 MG TD SCH (09:48)
[2021-07-13] MEDS: LOVENOX SUBCUT SCH (09:49)
[2021-07-13] MEDS: THIAMINE 100 MG in SODIUM CHLORIDE 50 ML IV SCH (11:41)
[2021-07-13] MEDS: ROCEPHIN 1 GM/50 ML D5W 1 GM/50 ML BAG IV SCH (12:58)
[2021-07-13] MEDS: REQUIP PO SCH (20:15)
[2021-07-14] MEDS: DILAUDID 0.5 MG/0.5 ML SYRINGE IVP PRN ×3 (01:15→15:18)
[2021-07-14] MEDS: LIBRIUM PO PRN ×3 (01:37→15:17)
[2021-07-14 05:22] LABS: AMYLASE 64.7 U/L (30-110); BLOOD UREA NITROGEN 3.9 mg/dL (9-20); CALCIUM 8.41 mg/dL (8.4-10.2); CARBON DIOXIDE 26.5 mmol/L (22-30.0); CHLORIDE 100.5 mmol/L (98-107); CREATININE 0.69 mg/dL (0.60-1.10); GLUCOSE 111.1 mg/dL (74-106); SODIUM 134.2 mmol/L (134.5-145)
[2021-07-14 05:23] LABS: BASOPHILS % (AUTO) 0.3 % (0.0-3.0); EOSINOPHILS # (AUTO) 0.1 K/ul (0.0-0.7); EOSINOPHILS % (AUTO) 1.5 % (0.0-7.0); HEMOGLOBIN 8.1 g/dl (14.0-18.0); IMMATURE GRANULOCYTE # (AUTO) 0.1 (0.0-1.0); IMMATURE GRANULOCYTE % (AUTO) 0.5 % (0.0-5.0); LYMPHOCYTES # (AUTO) 1.5 K/uL (0.60-3.4); LYMPHOCYTES % (AUTO) 15.9 (10.0-50.0); MEAN CORPUSCULAR HEMOGLOBIN 33.5 pg (27.0-31.0); MEAN CORPUSCULAR HGB CONC 35.2 (31.8-35.4); MONOCYTES # (AUTO) 2.2 K/uL (0.4-2.0); MONOCYTES % (AUTO) 22.8 (0-10); NEUTROPHILS # (AUTO) 5.6 K/ul (2.0-6.9); PLATELET COUNT 240 10^3/uL (140-440); RDW COEFFICIENT OF VARIATION 13.3 % (11.6-14.8); RED BLOOD COUNT 2.42 10^6/ul (4.70-6.10); WHITE BLOOD COUNT 9.49 K/ul (4.2-10.2)
[2021-07-14 05:25] LABS: POTASSIUM 2.63 mmol/L (3.5-5.1)
[2021-07-14] MEDS: SODIUM CHLORIDE 1,000 ML IV SCH (05:42)
[2021-07-14] MEDS ORDERED: MAGNESIUM SULFATE 1 GM/2 ML VIAL 2 GM in SODIUM CHLORIDE 100ML 100 ML IV ONE (07:08)
[2021-07-14] MEDS ORDERED: MAGNESIUM SULFATE 1 GM/100 ML D5W 2 GM/200 ML BAG IV STA (07:25)
[2021-07-14] MEDS: SODIUM CHLORIDE 0.45%-KCL 20 MEQ 1,000 ML IV SCH ×3 (08:07→22:12)
[2021-07-14] MEDS: MS CONTIN PO SCH ×2 (08:15→20:20)
[2021-07-14] MEDS: K-DUR PO SCH ×2 (08:15→20:19)
[2021-07-14] MEDS: ZESTRIL PO SCH (08:15)
[2021-07-14] MEDS: FLEXERIL PO SCH (08:15)
[2021-07-14] MEDS: PROTONIX IV IVP SCH (08:16)
[2021-07-14] MEDS: NICODERM 21 MG TD SCH (08:16)
[2021-07-14] MEDS: LOVENOX SUBCUT SCH (08:17)
--- NOTE | 2021-07-14 08:39 | PCM.PROG ---
Date Seen by Provider: 07/14/21 Time Seen by Provider: 08:36 Subjective: States he is feeling better. Abdominal pain is much improved. He is tolerating a full breakfast. Has been having good bowel movements and not nausea or vomiting. Objective: Vitals: T=98.2 F, P=105, R=18, AO=597/86, VNM6=195 HEENT: [Mucus membranes moist ] Neck: [supple ] Lungs: [Clinically clear bilaterally] CVS: [Regular S1 and S2 only] Abdomen: [Soft, tympanic + bowel sounds non tender] Extremities: [No edema ] Neurological: [Alert and awake no apparent distress . No focal deficites] Skin: [No rash] Lab/Tests/Diagnostic Imaging: [ Abnormal Lab Results 07/14/21 07/14/21 07/14/21 04:23 04:23 04:23 WBC 9.49 RBC 2.42 L Hgb 8.1 L Hct 23.0 L MCV 95.0 H MCH 33.5 H MCHC 35.2 RDW Coeff of Mariaa 13.3 Plt Count 240 Immature Gran % (Auto) 0.5 Neut % (Auto) 59.0 Lymph % (Auto) 15.9 Love % (Auto) 22.8 H Eos % (Auto) 1.5 Baso % (Auto) 0.3 Neut # (Auto) 5.6 Lymph # (Auto) 1.5 Love # (Auto) 2.2 H Eos # (Auto) 0.1 Baso # (Auto) 0.0 Immature Gran # (Auto) 0.1 Sodium 134.2 L Potassium 2.63 L* Chloride 100.5 Carbon Dioxide 26.5 Anion Gap 9.83 BUN 3.9 L Creatinine 0.69 Estimated GFR (MDRD) 118.00 BUN/Creatinine Ratio 5.65 Glucose 111.1 H D Calcium 8.41 Magnesium 1.23 L Amylase 64.7 Lipase 376.0 H ] (1) Hypokalemia: Status: Acute Code(s): E87.6 - Hypokalemia SNOMED Code(s): 60180738 Assessment: Still low at 2.63 despite being on some replacement. He definitely still needs more (probably 120Meq total). Will add to IV fluids and Give IV K Dmitriy and Extra PO, Recheck potassium in the AM Also replace MG as it is difficult to correct K with out correcting Mg first. See below. (2) Hypomagnesemia: Status: Acute Code(s): E83.42 - Hypomagnesemia SNOMED Code(s): 071186757 Assessment: Magnesium still low @ 1.23 despite 1 gm IV replacement yesterday. Will give another 2 grams this AM, Recheck in the AM 07/15/2021 (3) Pancreatitis: Status: Acute Code(s): K85.9 - Acute pancreatitis, unspecified SNOMED Code(s): 28512288 Assessment: Resolved. pain much improved. Tolerating regular diet well (4) Chronic back pain greater than 3 months duration: Status: Acute Code(s): M54.9 - Dorsalgia, unspecified; G89.29 - Other chronic pain SNOMED Code(s): 480142908887 Assessment: Had not followed with pain management. He was restarted on oral pain medications this admission. He will follow up with pain management doctor in 2 week post discharge. Will need prescription until then. Plan: Decreased Dilaudid from 1mg every 4 hours to ever 8-12 hours. Discharge anticipated in the AM if electrolytes are within acceptable ranges. Discontinue IV on the right ankle due to risk of infection. Has another site that is working. If lost will not need IV as he is about to be discharged.
[2021-07-14] MEDS: MYLICON PO PRN (08:40)
[2021-07-14] MEDS: THIAMINE 100 MG in SODIUM CHLORIDE 50 ML IV SCH (11:40)
[2021-07-14] MEDS: ROCEPHIN 1 GM/50 ML D5W 1 GM/50 ML BAG IV SCH (12:36)
[2021-07-14] MEDS: REQUIP PO SCH (20:20)
[2021-07-15] MEDS: SODIUM CHLORIDE 0.45%-KCL 20 MEQ 1,000 ML IV SCH ×2 (02:03→05:25)
[2021-07-15 05:33] LABS: HEMATOCRIT 23.6 % (42.0-52.0); HEMOGLOBIN 8.1 g/dl (14.0-18.0); MEAN CORPUSCULAR HEMOGLOBIN 32.8 pg (27.0-31.0); MEAN CORPUSCULAR HGB CONC 34.3 (31.8-35.4); MEAN CORPUSCULAR VOLUME 95.5 fl (80.0-94.0); PLATELET COUNT 309 10^3/uL (140-440); RDW COEFFICIENT OF VARIATION 13.6 % (11.6-14.8); RED BLOOD COUNT 2.47 10^6/ul (4.70-6.10); WHITE BLOOD COUNT 9.88 K/ul (4.2-10.2)
[2021-07-15] MEDS: DILAUDID 0.5 MG/0.5 ML SYRINGE IVP PRN (05:33)
[2021-07-15 05:47] LABS: ALBUMIN 3.47 g/dL (3.5-5.0); ALKALINE PHOSPHATASE 64.5 U/L (38-126); ANISOCYTOSIS NOT PRESENT (NOT PRESENT); ASPARTATE AMINO TRANSFERASE 26.7 U/L (17-59); BILIRUBIN,TOTAL 0.45 mg/dL (0.2-1.3); BLOOD UREA NITROGEN 5.7 mg/dL (9-20); CALCIUM 8.94 mg/dL (8.4-10.2); CARBON DIOXIDE 26.9 mmol/L (22-30.0); CREATININE 0.84 mg/dL (0.60-1.10); GLUCOSE 111.4 mg/dL (74-106); MAGNESIUM 1.35 mg/dL (1.6-2.3); POTASSIUM 3.99 mmol/L (3.5-5.1); SODIUM 135.1 mmol/L (134.5-145); TOTAL PROTEIN 6.13 g/dL (6.3-8.2)
[2021-07-15] MEDS: NICODERM 21 MG TD SCH (08:46)
[2021-07-15] MEDS: ROCEPHIN 1 GM/50 ML D5W 1 GM/50 ML BAG IV SCH (08:47)
[2021-07-15] MEDS: ZESTRIL PO SCH (08:47)
[2021-07-15] MEDS: K-DUR PO SCH (08:48)
[2021-07-15] MEDS: FLEXERIL PO SCH (08:48)
[2021-07-15] MEDS: LOVENOX SUBCUT SCH (08:49)
[2021-07-15] MEDS: MS CONTIN PO SCH (09:04)
[2021-07-15] MEDS: PROTONIX IV IVP SCH (09:34)
[2021-07-15] MEDS: THIAMINE 100 MG in SODIUM CHLORIDE 50 ML IV SCH (10:40)
[2021-07-15 15:32] VITALS: BP 88/49; TEMP 97.6
--- NOTE | 2021-07-17 18:13 | PCM.DC ---
Final Diagnosis: Acute Pancreatitis Physical Exam Appearance: Well-appearing, No pain distress and Well-nourished Ill-appearing: Not Applicable Pain Distress: Not Applicable Eyes: ABDI, EOMI, Conjunctiva clear (anti icteric), Conjunctiva pale, Right pupil size, Left pupil size and Other ENT: Ears normal, Nose normal and Oropharynx normal Neck: Supple Respiratory: Airway patent, Breath sounds clear and Respirations nonlabored Cardiovascular: RRR and Pulses normal GI/: Soft, Nontender, No masses and Bowel sounds normal Musculoskeletal: Normal strength, ROM intact, No edema and No calf tenderness Skin: Warm, Dry and Normal color Neurological: Sensation intact, Motor intact, Reflexes intact, Cranial nerves intact, Alert and Oriented Psychiatric: Affect appropriate and Mood appropriate (1) Hypokalemia: Status: Acute Code(s): E87.6 - Hypokalemia SNOMED Code(s): 58325014 (2) Hypomagnesemia: Status: Acute Code(s): E83.42 - Hypomagnesemia SNOMED Code(s): 846302571 (3) Pancreatitis: Status: Acute Code(s): K85.9 - Acute pancreatitis, unspecified SNOMED Code(s): 29329634 Qualifiers: Chronicity: acute Pancreatitis type: idiopathic Qualified Code(s): K85.0 - Idiopathic acute pancreatitis (4) Chronic back pain greater than 3 months duration: Status: Acute Code(s): M54.9 - Dorsalgia, unspecified; G89.29 - Other chronic pain SNOMED Code(s): 732674802354 Reason for Hospitalization: For evaluation and treatmetn of severe n-v- abdominal pain assoc with pancreatiitis See Dicated report Prognosis/Condition at Discharge: Fair-good Medications at Discharge: Ambulatory Orders Medication Instructions Recorded methocarbamol 500 mg tablet 750 mg PO TID PRN 04/11/13 (Robaxin) morphine 60 mg tablet,extended 60 mg PO BID 04/11/13 release ropinirole 1 mg tablet 1 mg PO BEDTIME PRN 04/11/13 lisinopril 10 mg tablet 40 mg PO DAILY 10/26/13 cyclobenzaprine 10 mg tablet 10 mg PO DAILY 01/08/17 morphine 60 mg tablet,extended 60 mg PO Q12H #15 tab 07/15/21 release (MS Contin) pantoprazole 40 mg tablet,delayed 40 mg PO DAILY #30 tab 07/15/21 release (Protonix) Lab/Diagnostics: See Chart Education Provided to Patient and Family: Yes Follow-ups: PCP 1 week Discharge Disposition: Home Hospital Course: Made progressive and satisfactory improvement through dishcharge date Plan: Discharge to home
== END 2021-07-15 16:12 | disposition home or self-care (01) | DRG 440 ==
LOC: ED 17:49 → MEDSURG A 21:49
PROVIDERS: ADMIT Internal Medicine Geriatric Medicine; ATTEND Emergency Medicine
DX: R53.1 Weakness; Z51.81 Encounter for therapeutic drug level monitoring; Z79.899 Other long term (current) drug therapy; M54.9 Dorsalgia, unspecified; K85.90 Acute pancreatitis without necrosis or infection, unspecified; Z72.0 Tobacco use; E83.42 Hypomagnesemia; E87.6 Hypokalemia; Z79.01 Long term (current) use of anticoagulants; G89.29 Other chronic pain

== ENCOUNTER 2024-06-27 14:08 | Observation (INO) ==
--- NOTE | 2024-06-27 14:33 | ED.PDOC ---
General ED Provider: Dr. VÍCTOR SMITH DO Chief Complaint: Weakness Stated Complaint: 58-year-old male presents to the ER stating that he is concerned about a stroke. He states that he was getting out of the shower at 2:00 this morning and when he was getting out of the shower he got tripped up on the shower curtain resulting in a fall. This pulled the shower curtain down and he woke up with it on top of him. He has a time where he does not remember part of it. He now reports a headache as well as left arm weakness. He has a history of chronic back pain after a significant injury many years ago which she is now on chronic pain medication. He is accompanied by his daughter who adds to this history and states that he gets very anxious if he does not have his morphine with then arms reach. He also is a chronic alcohol user and reports of not having a beer in 2 days. Denies vision or hearing changes, chest pain, palpitations, shortness of breath or other prodromal symptoms prior to his fall. Denies any blood thinner use. Time Seen by Provider: 06/27/24 14:22 Information Source: Patient and Family Primary Care Provider: CALEB MOREIRA APRN Nursing and Triage Documentation Reviewed and Agree: Yes What is Opioid Naive?: *Opioid Naive implies the patient is not already taking opioids or not chronically receiving opioids on a daily basis. *PRN dosing is not "usually" associated with tolerance. *Patients are at higher risk of over-sedation and aspiration. What is Opioid Tolerant?: *Opioid Tolerance implies less than the expected response to an opioid. *Acquired tolerance is defined by the patient taking 60mg of oral morphine daily (or equianalgesic dose of another opioid) for 1 week or more. *Often associated with chronic pain. *May take more than usual dose to achieve desired pain control. Review of Systems Review Of Systems Constitutional: Reports No symptoms All Other Systems: Reviewed and Negative [facility] Medical History COPD (chronic obstructive pulmonary disease) J44.9 - Chronic obstructive pulmonary disease, unspecified (ICD-10) Hypertension I10 - Essential (primary) hypertension (ICD-10) Social History Smoking and tobacco status: Current every day smoker History of recent travel: No Physical Exam Physical Exam Appearance: Reports No pain distress, Thin and Other (Anxious, twitchy) ENT: Reports Nose normal and Oropharynx normal Neck: Supple Respiratory: Reports Airway patent, Breath sounds clear and Respirations nonlabored Cardiovascular: Reports RRR and Pulses normal GI/: Reports Soft and Nontender Musculoskeletal: Reports Other (Range of motion to the left arm and left leg significantly reduced due to pain. He states that he has chronic left knee and hip pain which prevents any movement. He states that his left arm is weak and this is appreciable on physical exam.) Skin: Reports Warm, Dry and Normal color Neurological: Reports Sensation intact, Motor intact (Potentially decreased on left upper extremity. Appears painful), Cranial nerves intact, Alert and Oriented Psychiatric: Reports Affect appropriate, Mood appropriate and Anxious Interpretation EKG Interpretation EKG Interpretation By: ED Physician (Independently interpreted) Time of EKG #1: 14:48 Rate: Normal Rhythm: Sinus Ectopy: None [place]: [place] ST Segment: Normal Interpretation: Nonischemic EKG no abnormal pattern Re-Evaluation Re-Evaluation Additional Comments: 58-year-old male presents to the ER stating that he is concerned about a stroke. He is 12 hours from the event at approximately 2 AM when it sounds as though he had a mechanical fall resulting in potential head trauma. He does have apparent weakness to the left upper extremity. It is difficult to discern the left lower extremity due to his chronic pain issues. No other focal deficits. Patient also has a history of alcohol abuse and this could be secondary to some withdrawal as he is very twitchy and anxious in appearance. Will also check ammonia level although his mentation appears intact. The patient is on chronic pain medications and has a history of significant anxiety when he is not able to access his medications easily. Withdrawal, anxiety, intoxication by substance also on the differential for the cause of his fall and it does seem unusual to be taking a shower at 2 AM. Nonetheless, will obtain stat CT of the head and cervical spine to assess for traumatic injury. He is outside thrombolytic window as if there is any stroke but his NIH stroke scale at this time would be to or 3 due to the muscle weakness that could be confounded by or limited by chronic pain issues. 1516: Patient is reportedly asked his daughter to go in get his morphine tablets. We have requested that he not take any morphine at this time as we continue her workup. CT head and cervical spine negative. Labs demonstrate EDMOND. Will begin IV fluids and recheck. Magnesium level added. Alcohol level 0. Will give a low-dose benzodiazepine for potential withdrawal symptoms. 1556: Patient now reports that he was sitting on the toilet and when he got up he fell forward resulting in the fall. This lowers my suspicion for an acute ischemic stroke. The patient's labs do show acute kidney injury with mild hyponatremia. Giving IV fluids will check BM P if improved and tolerates p.o., patient stable for outpatient follow-up. Will discuss with daughter who is here with him regarding plans for ensuring safety of the patient given his history of alcohol abuse as well as chronic opiate use. 1735: Patient resting comfortably. IV no longer functioning well. His repeat labs have improved but given the persistence of the EDMOND, concern for general weakness and patient's safety, and suspicion that evaluation by physical therapy may be advantageous for this patient in addition to any further workup deemed appropriate and indicated by the hospitalist team, I have discussed the case with the hospitalist team who who graciously accepted for observation. We appreciate your help in the care of this patient. I do not feel this patient had an acute neurologic event today. Course Course 06/27/24 14:40 06/27/24 16:53 Orders, Labs, Meds: Lab Review 06/27/24 06/27/24 06/27/24 14:40 14:45 16:53 WBC 9.20 RBC 2.85 L Hgb 8.9 L Hct 27.2 L MCV 95.4 H MCH 31.2 H MCHC 32.7 RDW Coeff of Mariaa 13.9 Plt Count 203 Immature Gran % (Auto) 0.4 Neut % (Auto) 68.4 Lymph % (Auto) 18.5 [place] % (Auto) 10.2 H Eos % (Auto) 2.0 Baso % (Auto) 0.5 Neut # (Auto) 6.3 Lymph # (Auto) 1.7 Tyler # (Auto) 0.9 Eos # (Auto) 0.2 Baso # (Auto) 0.1 Immature Gran # (Auto) 0.0 PT 9.8 INR 0.94 APTT 24.6 Sodium 129.7 L 131.7 L Potassium 5.02 5.78 H Chloride 99.3 103.8 Carbon Dioxide 20.8 L 21.9 L Anion Gap 14.62 11.78 BUN 41.8 H 41.8 H Creatinine 1.86 H 1.68 H Estimated GFR (MDRD) 37.00 42.00 BUN/Creatinine Ratio 22.47 24.88 Glucose 122.6 H 110.8 H Lactic Acid 0.72 Calcium 8.95 8.90 Magnesium 2.03 Total Bilirubin 0.35 AST 79.5 H ALT 40.9 Alkaline Phosphatase 96.6 Ammonia < 8.7 L Total Creatine Kinase 125.0 CK-MB (CK-2) 3.130 H CK-MB (CK-2) % 2.5000 Troponin I < 0.012 NT-Pro-B Natriuret Pep 358 H Total Protein 7.98 Albumin 4.69 Globulin 3.29 Albumin/Globulin Ratio 1.42 Lipase 162.7 Urine Color Yellow Urine Clarity Clear Urine pH 5.5 Ur Specific [place] 1.015 Urine Protein Negative Urine Glucose (UA) Negative Urine Ketones Negative Urine Blood Trace-intact H Urine Nitrite Negative Urine Bilirubin Negative Urine Urobilinogen 0.2 Ur Leukocyte Esterase Negative Urine Microscopic RBC 5-10 Ur Squamous Epith Cells Not Reportable Salicylate Level mg/dL < 1.00 Urine Opiates Screen Positive H Ur Oxycodone Screen Negative Urine Methadone Screen Negative Acetaminophen < 10.0 L Ur Barbiturates Screen Negative U Tricyclic Antidepress Positive H Ur Phencyclidine Scrn Negative Ur Amphetamine Screen Negative U Methamphetamines Scrn Negative U Benzodiazepines Scrn Negative Urine Cocaine Screen Negative U Cannabinoids Screen Negative Plasma/Serum Alcohol < 10.0 Orders Category Date Time Status ADMIT OBSERVATION [PLACE PATIENT OBSERVATION] .TO ADMISSION 06/27/24 17:32 Ordered MEDSURG (MONITORED BED) EKG-(ED ONLY) Stat CARDIO 06/27/24 14:34 Completed ACTIVITY .Up With Assistance CARE 06/27/24 17:32 Ordered TELEMETRY MONITORING TELE CARE 06/27/24 17:32 Ordered REGULAR DIET DIETARY 06/28/24 Breakfast Ordered ACETAMINOPHEN Stat LAB 06/27/24 14:40 Completed ALCOHOL LEVEL [BLOOD ALCOHOL] Stat LAB 06/27/24 14:40 Completed AMMONIA Stat LAB 06/27/24 14:40 Completed BMP [BASIC METABOLIC PANEL] Stat LAB 06/27/24 16:53 Completed CBC W/ AUTO DIFF Stat LAB 06/27/24 14:40 Completed CMP [COMPREHENSIVE METABOLIC PANEL] Stat LAB 06/27/24 14:40 Completed CREATINE KINASE Stat LAB 06/27/24 14:40 Completed DRUG SCREEN (RAPID FOR ED) [DRUG SCREEN, URINE, RAPID] LAB 06/27/24 14:45 Completed Stat ED PROBNP [NT-PROBNP(ED)] Stat LAB 06/27/24 14:40 Completed LACTIC ACID Stat LAB 06/27/24 14:40 Completed LIPASE Stat LAB 06/27/24 14:40 Completed MAGNESIUM Stat LAB 06/27/24 14:40 Completed PT WITH INR Stat LAB 06/27/24 14:40 Completed PTT [PARTIAL THROMBOPLASTIN TIME] Stat LAB 06/27/24 14:40 Completed SALICYLATE Stat LAB 06/27/24 14:40 Completed TROPONIN I Stat LAB 06/27/24 14:40 Completed URINALYSIS C & S IF INDICATED Stat LAB 06/27/24 14:45 Completed Acetaminophen [Tylenol] Meds 06/27/24 17:32 Ordered 500 mg PO Q4H PRN Lorazepam [Ativan] Meds 06/27/24 15:17 Discontinued 2 mg IVP ONCE STA Ondansetron HCl/Pf [Zofran Sdv] Meds 06/27/24 17:32 Ordered 4 mg IVP Q3H PRN Sodium Chloride 0.9% [Sodium Chloride] 1,000 ml Meds 06/27/24 15:[address] CERVICAL SPINE W/O CONTRAST Stat RADS 06/27/24 14:[address] HEAD W/O CONTRAST Stat RADS 06/27/24 14:22 Completed HIP, LEFT 2VWS W OR W/O PELVIS Stat RADS 06/27/24 14:59 Completed SHOULDER, LEFT MIN 2V Stat RADS 06/27/24 15:15 Completed Medications Discontinued Medications Generic Name Dose Route Start Last Admin Trade Name Freq PRN Reason Stop Dose Admin Sodium Chloride 1,000 mls @ 1,000 mls/hr 06/27/24 15:15 06/27/24 15:23 Sodium Chloride IV 06/27/24 16:14 1,000 mls/hr BOLUS ONE Administration Lorazepam 2 mg 06/27/24 15:17 06/27/24 15:25 Lorazepam Inj 2 Mg/Ml Vial IVP 06/27/24 15:18 2 mg ONCE STA Administration Vital Signs: Temp Pulse Resp BP Pulse Ox 01/07/25 14:13 98.8 F 109 H 20 153/76 H 99 Discharge Plan Discharge Patient Disposition: PLACED OBSERVATION Discharge Problem: EDMOND (acute kidney injury), Fall, Chronic pain, Sprain of left shoulder, Acute pain of left shoulder, History of alcohol abuse Prescriptions: No Action duloxetine [Cymbalta] 60 mg capsule,delayed release(DR/EC) 60 mg PO BID Qty: 60 0RF lisinopril 40 mg tablet 40 mg PO ONCE 90 Days Qty: 90 2RF pantoprazole [Protonix] 40 mg tablet,delayed release (DR/EC) 40 mg PO DAILY 90 Days Qty: 90 2RF famotidine 40 mg tablet 40 mg PO 2XD Qty: 180 0RF donepezil 10 mg Tablet 10 mg PO BEDTIME Patient Comments: pt states hes never heard of this calcium carbonate [Calcium 500] 500 mg calcium (1,250 mg) Tablet 500 mg PO DAILY oxybutynin chloride 5 mg Tablet 5 mg PO BID Patient Comments: pt states he doesn't have this memantine 10 mg Tablet 10 mg PO BID Patient Comments: pt states he doesnt have this aspirin 81 mg Capsule 81 mg PO DAILY Patient Comments: pt states not taking multivitamin Tablet 1 tab PO DAILY morphine 60 mg tablet extended release 60 mg PO Q12H Patient Comments: TAKE 1 TABLET BY MOUTH TWICE DAILY Advil 100 mg Tablet 200 mg PO Q6H PRN (Reason: Pain) furosemide [Lasix] 40 mg tablet 40 mg PO QAM Qty: 10 0RF Patient Comments: pt says he doesnt have tiotropium bromide [Spiriva with HandiHaler] 18 mcg capsule, w/inhalation device 1 cap inhalation DAILY Rx Instructions: puncture 1 cap using device; one dose = 2 inhalations trazodone 100 mg tablet 100 mg PO BEDTIME albuterol sulfate 90 mcg/actuation HFA aerosol inhaler 2 puff inhalation Q6H PRN (Reason: shortness of breath or wheezing) Qty: 6.7 3RF gabapentin 400 mg capsule 400 mg PO TID 30 Days Qty: 90 1RF Did you review [place] [employer] for ALL controlled substances?: Not Applicable ED Provider: VÍCTOR SMITH Condition: Stable
--- NOTE | 2024-06-27 14:50 | CT ---
EXAMINATION: HEAD CT WITHOUT CONTRAST HISTORY: Fall, weakness TECHNIQUE: Noncontrast CT of the brain was performed with images acquired from skull base to vertex. 2-D coronal and sagittal reformatted images were obtained from the axial source images. Contrast Dose: None. CT Dose Reduction Techniques Performed: Yes. COMPARISON: None. FINDINGS: The brain is normal in morphology and attenuation for age. There is mild chronic small vessel ischem ic disease. There are no masses, mass effect or midline shift. There is no evidence for intracrania l hemorrhage or acute cerebral or cerebellar infarction. There are no extra-axial fluid collections or subdural hematomas. There are no cerebral contusions and there are no skull fractures. The visual ized portions of the paranasal sinuses and mastoid air cells are clear. IMPRESSION: 1. No acute intracranial pathology. All CT scans are performed using dose optimization techniques as appropriate to the performed exam an d include at least one of the following: Automated exposure control, adjustment of the mA and/or kV according t o size, and the use of iterative reconstruction technique.
[2024-06-27 14:51] LABS: BASOPHILS # (AUTO) 0.1 K/uL (0-0.2); BASOPHILS % (AUTO) 0.5 % (0.0-3.0); EOSINOPHILS # (AUTO) 0.2 K/ul (0.0-0.7); HEMATOCRIT 27.2 % (42.0-52.0); HEMOGLOBIN 8.9 g/dl (14.0-18.0); IMMATURE GRANULOCYTE % (AUTO) 0.4 % (0.0-5.0); LYMPHOCYTES # (AUTO) 1.7 K/uL (0.60-3.4); LYMPHOCYTES % (AUTO) 18.5 (10.0-50.0); MEAN CORPUSCULAR HEMOGLOBIN 31.2 pg (27.0-31.0); MEAN CORPUSCULAR HGB CONC 32.7 (31.8-35.4); MEAN CORPUSCULAR VOLUME 95.4 fl (80.0-94.0); MONOCYTES # (AUTO) 0.9 K/uL (0.4-2.0); MONOCYTES % (AUTO) 10.2 (0-10); NEUTROPHILS # (AUTO) 6.3 K/ul (2.0-6.9); NEUTROPHILS % (AUTO) 68.4 % (42.2-75.2); PLATELET COUNT 203 10^3/uL (140-440); RDW COEFFICIENT OF VARIATION 13.9 % (11.6-14.8); RED BLOOD COUNT 2.85 10^6/ul (4.70-6.10)
--- NOTE | 2024-06-27 14:52 | CT ---
EXAM: CT SCAN OF THE CERVICAL SPINE WITHOUT CONTRAST HISTORY: Trauma TECHNIQUE: Imaging of the cervical spine was performed without contrast. Axial images and coronal a nd sagittal reconstructions were obtained. FINDINGS: No acute abnormalities are seen within the occipital condyles, some and ring. The odontoi d process and C2 vertebral body appear intact. The spinous processes are intact. The prevertebral s oft tissues. IMPRESSION: No evidence of acute fracture dislocation seen within the cervical spine. All CT scans are performed using dose optimization techniques as appropriate to the performed exam an d include at least one of the following: Automated exposure control, adjustment of the mA and/or kV according t o size, and the use of iterative reconstruction technique.
[2024-06-27 15:03] LABS: ALANINE AMINOTRANSFERASE 40.9 U/L (0-50); ALBUMIN 4.69 g/dL (3.5-5.0); ALKALINE PHOSPHATASE 96.6 U/L (56-119); ASPARTATE AMINO TRANSFERASE 79.5 U/L (17-59); BILIRUBIN,TOTAL 0.35 mg/dL (0.2-1.3); BLOOD UREA NITROGEN 41.8 mg/dL (9-20); CALCIUM 8.95 mg/dL (8.4-10.2); CARBON DIOXIDE 20.8 mmol/L (22-30.0); CHLORIDE 99.3 mmol/L (98-107); CREATININE 1.86 mg/dL (0.60-1.10); GLUCOSE 122.6 mg/dL (74-106); LIPASE 162.7 U/L (23-300); POTASSIUM 5.02 mmol/L (3.5-5.1); SODIUM 129.7 mmol/L (134.5-145); TOTAL PROTEIN 7.98 g/dL (6.3-8.2)
[2024-06-27 15:04] LABS: BILIRUBIN,URINE Negative (NEGATIVE); CLARITY,URINE Clear (CLEAR); COLOR,URINE Yellow (YELLOW); GLUCOSE, URINE (UA) Negative (NEGATIVE); KETONES,URINE Negative (NEGATIVE); LEUKOCYTE ESTERASE ,URINE Negative (NEGATIVE); NITRITE,URINE Negative (NEGATIVE); PH,URINE 5.5 (5-9); PROTEIN,URINE Negative (NEGATIVE); URINE, BLOOD Trace-intact (NEGATIVE); UROBILINOGEN,URINE 0.2 (0.2)
[2024-06-27 15:05] LABS: PARTIAL THROMBOPLASTIN TIME 24.6 SEC (23.9-40.0); PROTHROMBIN TIME 9.8 SEC (9.3-11.0)
[2024-06-27 15:12] LABS: ACETAMINOPHEN < 10.0 ug/ml (10-30); BLOOD ALCOHOL < 10.0 mg/dL (0.0-50.0); SALICYLATE < 1.00 mg/dL (0-20.0)
[2024-06-27 15:13] LABS: TROPONIN I < 0.012 ng/ml (0.0000-0.120)
[2024-06-27 15:14] LABS: AMPHETAMINE SCREEN,URINE NEGATIVE (NEGATIVE); BARBITURATE SCREEN,URINE NEGATIVE (NEGATIVE); BENZODIAZEPINES SCREEN,URINE NEGATIVE (NEGATIVE); CANNABINOID SCREEN,URINE NEGATIVE (NEGATIVE); COCAIN SCREEN,URINE NEGATIVE (NEGATIVE); METHADONE URINE SCREEN NEGATIVE (NEGATIVE); METHAMPHETAMINES SCREEN,URINE NEGATIVE (NEGATIVE); OPIATE SCREEN,URINE POSITIVE (NEGATIVE); OXYCODONE URINE SCREEN NEGATIVE (NEGATIVE); PHENCYCLIDINE SCREEN,URINE NEGATIVE (NEGATIVE); TRICYCLIC ANTIDEPRESSANTS URIN POSITIVE (NEGATIVE)
[2024-06-27] MEDS: SODIUM CHLORIDE 1,000 ML IV ONE ×2 (15:23→21:49)
[2024-06-27] MEDS: ATIVAN IVP STA (15:25)
--- NOTE | 2024-06-27 16:00 | DI ---
EXAM: LEFT SHOULDER RADIOGRAPH. HISTORY: Left shoulder pain status post fall. TECHNIQUE: Three views. Frontal internal rotation, frontal external rotation, and scapular Y-view. COMPARISON: None. FINDINGS: The humeral head is properly seated within the glenoid fossa. The patient is able to internally and externally rotate the humerus. Mild degenerative changes of the acromioclavicular joint. No visible fractures or dislocations. IMPRESSION: 1. No visible fractures. 2. Mild degenerative changes of the AC joint.
[2024-06-27 17:17] LABS: BLOOD UREA NITROGEN 41.8 mg/dL (9-20); CALCIUM 8.9 mg/dL (8.4-10.2); CARBON DIOXIDE 21.9 mmol/L (22-30.0); CHLORIDE 103.8 mmol/L (98-107); CREATININE 1.68 mg/dL (0.60-1.10); GLUCOSE 110.8 mg/dL (74-106); POTASSIUM 5.78 mmol/L (3.5-5.1); SODIUM 131.7 mmol/L (134.5-145)
--- NOTE | 2024-06-27 17:23 | DI ---
EXAM: LEFT HIP AND PELVIS RADIOGRAPH TECHNIQUE: 3 views. Frontal pelvis. Frontal and lateral left hip. HISTORY: Trauma due to a fall. Left hip pain and pelvic pain. COMPARISON: None. FINDINGS: There is no fracture or dislocation. The soft tissues are normal. Articular surfaces are intact. There is no lytic or blastic lesion. Pedicle screws and connecting rods at L5-S1. IMPRESSION: 1. Prior surgery and L5-S1. 2. Otherwise unremarkable images of the left hip and pelvis.
[2024-06-27] MEDS ORDERED: ZOFRAN SDV IVP PRN ×2 (17:32→17:43)
[2024-06-27] MEDS ORDERED: TYLENOL PO PRN ×2 (17:32→17:43)
[2024-06-27 18:15] LABS: SARS COV-2 RNA RAPID NAAT NEGATIVE (NEGATIVE)
[2024-06-27] MEDS: DEXTROSE 50%-WATER ABBOJECT IVP STA ×2 (18:35→20:25)
[2024-06-27] MEDS: HUMULIN R (10ML) IVP STA (18:38)
[2024-06-27] MEDS: THIAMINE ONE ×2 (18:55→21:13)
[2024-06-27] MEDS: FOLIC ACID 1 MG in SODIUM CHLORIDE 50 ML IV SCH (19:01)
[2024-06-27] MEDS: INFUVITE ADULT 10 ML in SODIUM CHLORIDE 1,000 ML IV ONE (20:21)
[2024-06-27] MEDS: THIAMINE 100 MG in SODIUM CHLORIDE 50 ML IV STA (20:22)
[2024-06-27] MEDS: INFUVITE ADULT IV ONE (21:08)
[2024-06-27] MEDS: FOLIC ACID ONE (21:08)
[2024-06-27] MEDS ORDERED: VENTOLIN HFA IH PRN (21:21)
[2024-06-27] MEDS ORDERED: HYDRALAZINE HCL IVP PRN (21:24)
[2024-06-27] MEDS: DEXTROSE 50%-WATER ABBOJECT IVP PRN (21:47)
[2024-06-27] MEDS: NEURONTIN PO SCH (21:48)
[2024-06-27 22:53] VITALS: BMI 19.8
[2024-06-27] MEDS: MS CONTIN PO PRN (23:38)
[2024-06-28] MEDS: SODIUM CHLORIDE 1,000 ML IV SCH ×2 (04:32→13:11)
[2024-06-28 05:32] LABS: BASOPHILS % (AUTO) 0.6 % (0.0-3.0); EOSINOPHILS # (AUTO) 0.1 K/ul (0.0-0.7); EOSINOPHILS % (AUTO) 0.7 % (0.0-7.0); IMMATURE GRANULOCYTE % (AUTO) 0.4 % (0.0-5.0); LYMPHOCYTES # (AUTO) 1.5 K/uL (0.60-3.4); LYMPHOCYTES % (AUTO) 20.8 (10.0-50.0); MEAN CORPUSCULAR HEMOGLOBIN 30.8 pg (27.0-31.0); MEAN CORPUSCULAR HGB CONC 32.1 (31.8-35.4); MEAN CORPUSCULAR VOLUME 95.9 fl (80.0-94.0); MONOCYTES # (AUTO) 0.9 K/uL (0.4-2.0); MONOCYTES % (AUTO) 13.1 (0-10); NEUTROPHILS # (AUTO) 4.6 K/ul (2.0-6.9); NEUTROPHILS % (AUTO) 64.4 % (42.2-75.2); PLATELET COUNT 217 10^3/uL (140-440); RED BLOOD COUNT 2.92 10^6/ul (4.70-6.10); WHITE BLOOD COUNT 7.08 K/ul (4.2-10.2)
[2024-06-28 05:50] LABS: ALANINE AMINOTRANSFERASE 34.3 U/L (0-50); ALBUMIN 4.38 g/dL (3.5-5.0); ALKALINE PHOSPHATASE 89.4 U/L (56-119); ASPARTATE AMINO TRANSFERASE 54.8 U/L (17-59); BILIRUBIN,TOTAL 0.38 mg/dL (0.2-1.3); BLOOD UREA NITROGEN 34.3 mg/dL (9-20); CALCIUM 8.84 mg/dL (8.4-10.2); CARBON DIOXIDE 24.2 mmol/L (22-30.0); CHLORIDE 103.6 mmol/L (98-107); CREATININE 1.46 mg/dL (0.60-1.10); GLUCOSE 103.6 mg/dL (74-106); POTASSIUM 5.21 mmol/L (3.5-5.1); SODIUM 135.1 mmol/L (134.5-145); TOTAL PROTEIN 7.48 g/dL (6.3-8.2)
[2024-06-28] MEDS: PROTONIX PO SCH (07:04)
[2024-06-28] MEDS: MULTIVITAMIN TABLET PO SCH (09:00)
[2024-06-28] MEDS: CYMBALTA PO SCH (09:01)
[2024-06-28] MEDS: SPIRIVA IH SCH (09:02)
[2024-06-28] MEDS: PEPCID PO SCH (09:02)
[2024-06-28 10:39] VITALS: RESP 16
[2024-06-28 12:25] LABS: BLOOD UREA NITROGEN 31.8 mg/dL (9-20); CALCIUM 9.02 mg/dL (8.4-10.2); CARBON DIOXIDE 19.1 mmol/L (22-30.0); CHLORIDE 104.9 mmol/L (98-107); CREATININE 1.38 mg/dL (0.60-1.10); GLUCOSE 132.7 mg/dL (74-106); POTASSIUM 5.87 mmol/L (3.5-5.1); SODIUM 131.9 mmol/L (134.5-145)
[2024-06-28] MEDS: KAYEXALATE SUSP PO ONE (13:11)
--- NOTE | 2024-06-28 14:47 | PCM.SS ---
Provider Provider: [facility]AR[facility]AMUDIO PA-C, [facility] Date Admission Date: 06/27/24 Discharge Date Discharge Date: 06/28/24 Primary Care Physician Primary Care Physician: CALEB MOREIRA APRN Chief Complaint Reason For Visit: EDMOND, FALL, WEAKNESS History of Present Illness History of Present Illness: Admitted 06/27/24 18:16, this 58 year old /WHITE/M with pmhx of alcohol abuse, chronic pain on chronic narcotics, neuropathy, GERD, hyperlipidemia, hypertension presented to the ER with cc of left arm weakness following a fall. Patient describes being on the toilet while urinating in the middle of the night. He then "blacked out" briefly, unable to really describe what happened. States he fell into the shower infront of him. He felt fine after the fact, describes no deficits. However later in the evening the next day, he noticed his left upper arm was painful when lifting it and was having a hard time lifting it. In the ER his ct head w/o, cervical spine ct w/o, hip x ray, and left shoulder x ray were without any acute findings. His labs were indicative of EDMOND and his potassium was noted to be mildly elevated as well. He was given fluids, insulin, dextrose, and ativan while in the ER. No changes on EKG. Patient admitted to [facility] for EDMOND and hyperkalemia. Once on the floor patient was hypoglycemic. He received two amps of D50 and glucose stabilized. He was more alert and asking for his pain medication and to eat. He ate a couple sandwiches. Glucose remained stable throughout remainder of stay. The following morning patient states he's feeling better. Orthostats normal. Complains of left upper arm pain that is worse with movement, unable to hold his arm up over his head due to pain. Inspector Advanced [employer] strength normal kathy. Discussed his imaging results. Clinically and with scenario he describes, it sounds more like a musculoskeletal injury and less likely CVA. Could warrant further imaging outpatient with MRI if no improvement. He states he often "blacks out" after taking seroquel, which he states he had taken that night prior to this incident. No events on tele. Repeat labs this morning showed improved EDMOND but not at baseline. K+ improved. After further fluids patient's EDMOND improved more but K+ worsened. He was given a dose of kayexalate, later followed by a dose of lokelma. He had a large BM. Repeat bmp showed normal K+. Discussed to hold lisinopril as patient states he is taking this, until pcp follow up as it can cause hyperkalemia. Push fluids. Discharged home in stable condition. Of note, patient is very unclear on what he is taking other than his scheduled morphine. This provider called his pharmacy, the pharmacist states he fills his morphine regularly (which I confirmed via ilpmp), and otherwise he filled #90 day supply lisinopril, protonix, cymbalta, and gabapentin in January of 2024. He filled an albuterol inhaler in May. No trazodone noted, despite being on his med list. Seroquel was filled as a 30 day supply in July of 2023, which patient states he's still taking. Oxybutynin, Donepezil and memantine are on his med list but patient denies taking and pharmacy does not have record of this being filled. Also today patient requested to nursing staff to give him ativan and adderall, neither of which have been prescribed to him. 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 M53.9 - Dorsopathy, unspecified (ICD-10) COPD (chronic obstructive pulmonary disease) J44.9 - Chronic obstructive pulmonary disease, unspecified (ICD-10) Hypertension I10 - Essential (primary) hypertension (ICD-10) Family History Mother Breast cancer BROTHER Hypertension Unknown Diabetes Social History Smoking and tobacco status: Current every day smoker History of recent travel: No Medications Mecications: Medications at Discharge (Home Meds & RX) Allergies Allergies Allergy/AdvReac Type Severity Reaction Status Date / Time codeine AdvReac Vomiting Verified 06/27/24 15:23 Review of Systems Constitutional: Denies Fever Head: Reports Normocephalic Cardiovascular: Denies Chest pain or Edema Respiratory: Denies Cough or Shortness of air Gastrointestinal: Denies Nausea, Vomiting or Abdominal pain Genitourinary: Denies Dysuria or Hematuria Neurological: Reports Weakness (+weakness and pain of LUE ); Denies Headache or Dizziness Physical Examination Appearance: Positive No Apparent Distress and Alert and Oriented x3 Head: Positive Normocephalic and Atraumatic Neck: Positive Supple and Trachea Midline Heart: Positive RRR Respiratory: Positive Breath Sounds Clear, Bilaterally and Respirations Nonlabored; Negative Crackles, Rhonchi or Wheezes GI/: Positive Soft, Nontender and Bowel sounds normal Extremities: Negative Edema Neurological: Positive Cranial nerves intact, Alert and Oriented Psychiatric: Positive Normal Judgement and Normal Insight; Negative Anxious Additional Findings: Left upper extremity - patient is able to lift arm but not quite to 90 degrees, stating it hurts to much in his bicep/deltoid area. Inspector Advanced Composite strength equal kathy. No bruising or obvious abnormality noted. Pulses intact. Vital Signs (Last 4 Hours) Vital Signs Last 4 Hours: Vital Signs: Last 4 Hours 06/28/24 10:45 06/28/24 11:00 06/28/24 12:00 Blood Pressure 157/90 H Blood Pressure Location Left Arm Blood Pressure Position Supine Oxygen Delivery Method Room Air Room Air Telemetry Type Telemetry Monitoring Telemetry Heart Rate EKG CT Interval EKG QRS Interval Telemetry Strip Reading 06/28/24 13:00 06/28/24 13:00 06/28/24 14:00 Blood Pressure Blood Pressure Location Blood Pressure Position Oxygen Delivery Method Room Air Room Air Telemetry Type Remote Telemetry Telemetry Monitoring Continues Telemetry Heart Rate [address] Interval 0.20 EKG QRS Interval 0.06 Telemetry Strip Reading Sinus Tachycardia Labs This Visit Labs This Visit: Labs This Visit 06/27/24 06/27/24 06/27/24 14:40 14:45 16:53 WBC 9.20 RBC 2.85 L Hgb 8.9 L Hct 27.2 L MCV 95.4 H MCH 31.2 H MCHC 32.7 RDW Coeff of Mariaa 13.9 Plt Count 203 Immature Gran % (Auto) 0.4 Neut % (Auto) 68.4 Lymph % (Auto) 18.5 Dougherty % (Auto) 10.2 H Eos % (Auto) 2.0 Baso % (Auto) 0.5 Neut # (Auto) 6.3 Lymph # (Auto) 1.7 Dougherty # (Auto) 0.9 Eos # (Auto) 0.2 Baso # (Auto) 0.1 Immature Gran # (Auto) 0.0 PT 9.8 INR 0.94 APTT 24.6 Sodium 129.7 L 131.7 L Potassium 5.02 5.78 H Chloride 99.3 103.8 Carbon Dioxide 20.8 L 21.9 L Anion Gap 14.62 11.78 BUN 41.8 H 41.8 H Creatinine 1.86 H 1.68 H Estimated GFR (MDRD) 37.00 42.00 BUN/Creatinine Ratio 22.47 24.88 Glucose 122.6 H 110.8 H Lactic Acid 0.72 Calcium 8.95 8.90 Magnesium 2.03 Total Bilirubin 0.35 AST 79.5 H ALT 40.9 Alkaline Phosphatase 96.6 Ammonia < 8.7 L Total Creatine Kinase 125.0 CK-MB (CK-2) 3.130 H CK-MB (CK-2) % 2.5000 Troponin I < 0.012 NT-Pro-B Natriuret Pep 358 H Total Protein 7.98 Albumin 4.69 Globulin 3.29 Albumin/Globulin Ratio 1.42 Lipase 162.7 Urine Color Yellow Urine Clarity Clear Urine pH 5.5 Ur Specific [place] 1.015 Urine Protein Negative Urine Glucose (UA) Negative Urine Ketones Negative Urine Blood Trace-intact H Urine Nitrite Negative Urine Bilirubin Negative Urine Urobilinogen 0.2 Ur Leukocyte Esterase Negative Urine Microscopic RBC 5-10 Ur Squamous Epith Cells Not Reportable Salicylate Level mg/dL < 1.00 Urine Opiates Screen Positive H Ur Oxycodone Screen Negative Urine Methadone Screen Negative Acetaminophen < 10.0 L Ur Barbiturates Screen Negative U Tricyclic Antidepress Positive H Ur Phencyclidine Scrn Negative Ur Amphetamine Screen Negative U Methamphetamines Scrn Negative U Benzodiazepines Scrn Negative Urine Cocaine Screen Negative U Cannabinoids Screen Negative Plasma/Serum Alcohol < 10.0 SARS CoV-2 RNA Rapid TALIA 06/27/24 06/27/24 06/28/24 17:35 18:06 05:16 WBC 7.08 RBC 2.92 L Hgb 9.0 L Hct 28.0 L MCV 95.9 H MCH 30.8 MCHC 32.1 RDW Coeff of Mariaa 14.0 Plt Count 217 Immature Gran % (Auto) 0.4 Neut % (Auto) 64.4 Lymph % (Auto) 20.8 Dougherty % (Auto) 13.1 H Eos % (Auto) 0.7 Baso % (Auto) 0.6 Neut # (Auto) 4.6 Lymph # (Auto) 1.5 Dougherty # (Auto) 0.9 Eos # (Auto) 0.1 Baso # (Auto) 0.0 Immature Gran # (Auto) 0.0 PT INR APTT Sodium 135.1 Potassium 5.27 H 5.21 H Chloride 103.6 Carbon Dioxide 24.2 Anion Gap 12.51 BUN 34.3 H Creatinine 1.46 H Estimated GFR (MDRD) 49.00 BUN/Creatinine Ratio 23.49 Glucose 103.6 Lactic Acid Calcium 8.84 Magnesium Total Bilirubin 0.38 AST 54.8 ALT 34.3 Alkaline Phosphatase 89.4 Ammonia Total Creatine Kinase CK-MB (CK-2) CK-MB (CK-2) % Troponin I NT-Pro-B Natriuret Pep Total Protein 7.48 Albumin 4.38 Globulin 3.10 Albumin/Globulin Ratio 1.41 Lipase Urine Color Urine Clarity Urine pH Ur Specific [place] Urine Protein Urine Glucose (UA) Urine Ketones Urine Blood Urine Nitrite Urine Bilirubin Urine Urobilinogen Ur Leukocyte Esterase Urine Microscopic RBC Ur Squamous Epith Cells Salicylate Level mg/dL Urine Opiates Screen Ur Oxycodone Screen Urine Methadone Screen Acetaminophen Ur Barbiturates Screen U Tricyclic Antidepress Ur Phencyclidine Scrn Ur Amphetamine Screen U Methamphetamines Scrn U Benzodiazepines Scrn Urine Cocaine Screen U Cannabinoids Screen Plasma/Serum Alcohol SARS CoV-2 RNA Rapid TALIA Negative 06/28/24 12:10 WBC RBC Hgb Hct MCV MCH MCHC RDW Coeff of Mariaa Plt Count Immature Gran % (Auto) Neut % (Auto) Lymph % (Auto) Dougherty % (Auto) Eos % (Auto) Baso % (Auto) Neut # (Auto) Lymph # (Auto) Dougherty # (Auto) Eos # (Auto) Baso # (Auto) Immature Gran # (Auto) PT INR APTT Sodium 131.9 L Potassium 5.87 H Chloride 104.9 Carbon Dioxide 19.1 L Anion Gap 13.77 BUN 31.8 H Creatinine 1.38 H Estimated GFR (MDRD) 53.00 BUN/Creatinine Ratio 23.04 Glucose 132.7 H Lactic Acid Calcium 9.02 Magnesium Total Bilirubin AST ALT Alkaline Phosphatase Ammonia Total Creatine Kinase CK-MB (CK-2) CK-MB (CK-2) % Troponin I NT-Pro-B Natriuret Pep Total Protein Albumin Globulin Albumin/Globulin Ratio Lipase Urine Color Urine Clarity Urine pH Ur Specific [place] Urine Protein Urine Glucose (UA) Urine Ketones Urine Blood Urine Nitrite Urine Bilirubin Urine Urobilinogen Ur Leukocyte Esterase Urine Microscopic RBC Ur Squamous Epith Cells Salicylate Level mg/dL Urine Opiates Screen Ur Oxycodone Screen Urine Methadone Screen Acetaminophen Ur Barbiturates Screen U Tricyclic Antidepress Ur Phencyclidine Scrn Ur Amphetamine Screen U Methamphetamines Scrn U Benzodiazepines Scrn Urine Cocaine Screen U Cannabinoids Screen Plasma/Serum Alcohol SARS CoV-2 RNA Rapid TALIA Imaging Imaging: EXAMINATION: HEAD CT WITHOUT CONTRAST HISTORY: Fall, weakness TECHNIQUE: Noncontrast CT of the brain was performed with images acquired from skull base to vertex. 2-D coronal and sagittal reformatted images were obtained from the axial source images. Contrast Dose: None. CT Dose Reduction Techniques Performed: Yes. COMPARISON: None. FINDINGS: The brain is normal in morphology and attenuation for age. There is mild chronic small vessel ischemic disease. There are no masses, mass effect or midline shift. There is no evidence for intracranial hemorrhage or acute cerebral or cerebellar infarction. There are no extra-axial fluid collections or subdural hematomas. There are no cerebral contusions and there are no skull fractures. The visualized portions of the paranasal sinuses and mastoid air cells are clear. IMPRESSION: 1. No acute intracranial pathology. EXAM: CT SCAN OF THE CERVICAL SPINE WITHOUT CONTRAST HISTORY: Trauma TECHNIQUE: Imaging of the cervical spine was performed without contrast. Axial images and coronal and sagittal reconstructions were obtained. FINDINGS: No acute abnormalities are seen within the occipital condyles, some and ring. The odontoid process and C2 vertebral body appear intact. The spinous processes are intact. The prevertebral soft tissues. IMPRESSION: No evidence of acute fracture dislocation seen within the cervical spine. EXAM: LEFT SHOULDER RADIOGRAPH. HISTORY: Left shoulder pain status post fall. TECHNIQUE: Three views. Frontal internal rotation, frontal external rotation, and scapular Y-view. COMPARISON: None. FINDINGS: The humeral head is properly seated within the glenoid fossa. The patient is able to internally and externally rotate the humerus. Mild degenerative changes of the acromioclavicular joint. No visible fractures or dislocations. IMPRESSION: 1. No visible fractures. 2. Mild degenerative changes of the AC joint. EXAM: LEFT HIP AND PELVIS RADIOGRAPH TECHNIQUE: 3 views. Frontal pelvis. Frontal and lateral left hip. HISTORY: Trauma due to a fall. Left hip pain and pelvic pain. COMPARISON: None. FINDINGS: There is no fracture or dislocation. The soft tissues are normal. Articular surfaces are intact. There is no lytic or blastic lesion. Pedicle screws and connecting rods at L5-S1. IMPRESSION: 1. Prior surgery and L5-S1. 2. Otherwise unremarkable images of the left hip and pelvis. Review Review Statement: I have independently reviewed and interpreted the labs/EKGs/imaging that were ordered by the ER provider. I have reviewed all outside records that are available currently in our EMR including imaging/notes/labs from previous visits. Plan Reccomendations/Plan: 1. EDMOND, stage I in setting of dehydration- Hold lisinopril, cont fluids, repeat labs in AM 2. Hyperkalemia, mild - No EKG changes, tele, kayexalate ordered. Hold lisinopril. 3. Near syncope vs syncope vs mechanical fall - Unclear history, unreliable historian. Could be due to dehydration vs polypharmacy. CT head neg. Unlikely cardiac etiology. 4. Hypoglycemia following insulin/dextrose administration - Resolved. 5. Hypertension - Holding lisinopril for now, unclear if patient is taking regularly 6. Chronic pain - Cont home meds 7. Left arm pain following fall - Imaging negative. Conservative measures. If no improvement, consider MRI outpatient Once on the floor patient was hypoglycemic. He received two amps of D50 and glucose stabilized. He was more alert and asking for his pain medication and to eat. He ate a couple sandwiches. Glucose remained stable throughout remainder of stay. This morning patient states he's feeling better. Orthostats normal. Complains of left upper arm pain that is worse with movement, unable to hold his arm up over his head due to pain. Inspector Advanced Composite strength normal kathy. Discussed his imaging results. Clinically and with scenario he describes, it sounds more like a musculoskeletal injury and less likely CVA. Could warrant further imaging outpatient with MRI if no improvement. He states he often "blacks out" after taking seroquel, which he states he had taken that night prior to this incident. No events on tele. Repeat labs this morning showed improved EDMOND but not at baseline. K+ improved. After further fluids patient's EDMOND improved more but K+ worsened. He was given a dose of kayexalate, later followed by a dose of lokelma. He had a large BM. Repeat bmp showed normal K+. Discussed to hold lisinopril as patient states he is taking this, until pcp follow up as it can cause hyperkalemia. Push fluids. Discharged home in stable condition. Of note, patient is very unclear on what he is taking other than his scheduled morphine. This provider called his pharmacy, the pharmacist states he fills his morphine regularly (which I confirmed via ilpmp), and otherwise he filled #90 day supply lisinopril, protonix, cymbalta, and gabapentin in January of 2024. He filled an albuterol inhaler in May. No trazodone noted, despite being on his med list. Seroquel was filled as a 30 day supply in July of 2023, which patient states he's still taking. Oxybutynin, Donepezil and memantine are on his med list but patient denies taking and pharmacy does not have record of this being filled. Also today patient requested to nursing staff to give him ativan and adderall, neither of which have been prescribed to him. Discharge Diagnoses: 1. EDMOND, stage I - improved 2. Hyperkalemia, mild - resolved 3. Near syncope vs syncope vs mechanical fall 4. Left arm pain 5. Hypertension, chronic 6. Chronic pain Additional Planning: Case discussed with ED Physician, Dr. Dunne. DVT Prophylaxis: Ambulation Advanced Care Plannin minutes spent discussing advance care planning. Admit to: Obs Discussed Plan of Care with Dr. Hemal Figueroa. Review With Patient Reviewed with Patient and Family: Patient and family have been counseled on condition and care plan and have no immediate questions. I have personally discussed and reviewed the patient's visit/current labs/imaging/decision making with Dr. Hemal Figueroa, my supervising attending. Total number of minutes spent with patient [85] min. More than 50% of the time spent with this patient was devoted to counseling and coordination of care. Time of Admission:06/27/24 18:16 Time of Discharge: 06/28/24 1045 Discharge Plan Discharge Discharge Orders: Discharge Patient (ONCE); Ordered 06/28/24 Ordered By: ZARIA ZAMUDIO Activity Restrictions/Additional Instructions: DISCHARGE TO HOME DX: DEHYDRATION, ELEVATED POTASSIUM HOLD YOUR LISINOPRIL UNTIL FOLLOW UP WITH PCP DUE TO ELEVATED POTASSIUM PUSH FLUIDS MAY DO HEAT PACKS, REST FOR LEFT UPPER ARM PAIN Instructions: Dehydration (DC), Acute Kidney Injury (DC), Hyperkalemia (DC) Care Plan Goals: Problem: Fluid Volume Deficit Goal: Maintain fluid and electrolyte balance Instructions: Monitor and maintain hydration status Follow fluid and dietary restrictions Problem: Fluid and electrolyte imbalance Goal: Maintain fluid and electrolyte balance Instructions: Monitor I/O as needed Obtain labs related to electrolytes Patient Disposition: HOME SELF-CARE Prescriptions: Continued pantoprazole [Protonix] 40 mg tablet,delayed release (DR/EC) 40 mg PO DAILY 90 Days Qty: 90 2RF famotidine 40 mg tablet 40 mg PO 2XD Qty: 180 0RF calcium carbonate 500 mg calcium (1,250 mg) Tablet 500 mg PO DAILY aspirin 81 mg Capsule 81 mg PO DAILY Patient Comments: pt states not taking multivitamin Tablet 1 tab PO DAILY morphine 60 mg tablet extended release 60 mg PO Q12H Patient Comments: TAKE 1 TABLET BY MOUTH TWICE DAILY tiotropium bromide [Spiriva with HandiHaler] 18 mcg capsule, w/inhalation device 1 cap inhalation DAILY Rx Instructions: puncture 1 cap using device; one dose = 2 inhalations albuterol sulfate 90 mcg/actuation HFA aerosol inhaler 2 puff inhalation Q6H PRN (Reason: shortness of breath or wheezing) Qty: 6.7 3RF Discontinued lisinopril 40 mg tablet 40 mg PO ONCE 90 Days Qty: 90 2RF No Action duloxetine [Cymbalta] 60 mg capsule,delayed release(DR/EC) 60 mg PO BID Qty: 60 0RF donepezil 10 mg Tablet 10 mg PO BEDTIME Patient Comments: pt states hes never heard of this oxybutynin chloride 5 mg Tablet 5 mg PO BID Patient Comments: pt states he doesn't have this memantine 10 mg Tablet 10 mg PO BID Patient Comments: pt states he doesnt have this Advil 100 mg Tablet 200 mg PO Q6H PRN (Reason: Pain) furosemide [Lasix] 40 mg tablet 40 mg PO QAM Qty: 10 0RF Patient Comments: pt says he doesnt have trazodone 100 mg tablet 100 mg PO BEDTIME gabapentin 400 mg capsule 400 mg PO TID 30 Days Qty: 90 1RF Did you review [place] SIGNAL HELPER for ALL controlled substances?: Yes Discussed opioids are addictive and Narcan is available by prescription or from pharmacy.: Yes Condition: Stable Referrals: VJ LOTT MD [STAFF PHYSICIAN] - 06/29/24 2:00 pm
[2024-06-28] MEDS: LOKELMA PO ONE (15:41)
[2024-06-28 18:30] VITALS: BP 142/94; PULSE 97; TEMP 96.8
[2024-06-28 18:48] LABS: BLOOD UREA NITROGEN 28.5 mg/dL (9-20); CARBON DIOXIDE 21.7 mmol/L (22-30.0); CHLORIDE 102.2 mmol/L (98-107); CREATININE 1.43 mg/dL (0.60-1.10); GLUCOSE 111.2 mg/dL (74-106); POTASSIUM 4.83 mmol/L (3.5-5.1); SODIUM 134.4 mmol/L (134.5-145)
[2024-06-28] MEDS ORDERED: THIAMINE 100 MG in SODIUM CHLORIDE 50 ML IV SCH (21:00)
[2024-06-28] MEDS ORDERED: FOLIC ACID 1 MG in SODIUM CHLORIDE 50 ML IV SCH (21:00)
== END 2024-06-28 19:20 | disposition home or self-care (01) ==
LOC: ED 14:08 → MEDSURG B 14:08
PROVIDERS: ADMIT Hospitalist; ATTEND Physician Assistant
DX: Z79.899 Other long term (current) drug therapy; G89.29 Other chronic pain; N17.9 Acute kidney failure, unspecified; M25.552 Pain in left hip; M19.012 Primary osteoarthritis, left shoulder; M25.562 Pain in left knee; M54.9 Dorsalgia, unspecified; F17.210 Nicotine dependence, cigarettes, uncomplicated; Z51.81 Encounter for therapeutic drug level monitoring; E87.1 Hypo-osmolality and hyponatremia; Z20.822 Contact with and (suspected) exposure to COVID-19; Z79.891 Long term (current) use of opiate analgesic; F10.20 Alcohol dependence, uncomplicated; S43.402A Unspecified sprain of left shoulder joint, initial encounter; M79.605 Pain in left leg; I10 Essential (primary) hypertension; R55 Syncope and collapse; M62.81 Muscle weakness (generalized); W19.XXXA Unspecified fall, initial encounter; E87.5 Hyperkalemia